=== PATIENT | male | born 1945 | race Caucasian/White ===

== ENCOUNTER 2018-02-18 20:04 | Emergency (ER) | payer MEDICARE, OTHER ==
[2018-02-18 21:30] LABS: #Eosinphils 0.1 thou/uL (0.0-0.7); #Lymphocytes 0.8 thou/uL (1.20-3.40); #Monocytes 0.6 thou/uL (0.11-0.59); #Neutrophils 12.7 thou/uL (1.40-6.50); %Basophils 0.1 % (0.0-1.0); %Eosinophils 0.7 % (0.0-10.0); %Lymphocytes 5.8 % (21.0-51.0); %Monocytes 3.9 % (0.0-10.0); %Neutrophils 89.5 % (42.0-75.0); Hemoglobin 12.8 g/dL (14.0-18.0); Mean Corpuscular HGB CONC 34.3 g/dL (32.0-36.0); Mean Corpuscular Hemoglobin 32.3 pg (27.0-31.0); Mean Corpuscular Volume 94.3 fl (80.0-94.0); Mean Platelet Volume 7.6 fL (7.4-10.4); Platelet Count 164 thou/uL (130-400); RBC Distribution Width 13.3 % (11.5-14.5); Red Blood Cell (RBC) Count 3.95 mill/uL (4.70-6.10); White Blood Cell (WBC) Count 14.2 thou/uL (4.8-10.8)
[2018-02-18 21:35] LABS: INR-International Normal Ratio 1.1; Prothrombin Time 14.6 SEC (12.0-14.7)
[2018-02-18 21:36] LABS: PTT 29.7 SEC (22.9-36.1)
[2018-02-18 21:49] LABS: ALT (SGPT) 43 U/L (8-55); AST (SGOT) 21 U/L (5-34); Albumin 3.5 g/dL (3.4-4.8); Alkaline Phosphatase 100 U/L (40-150); Anion Gap 10 mmol/L (10-20); BUN (Urea Nitrogen) 30 mg/dL (8.4-25.7); Bilirubin, Total 0.7 mg/dL (0.2-1.2); Calc. Creatinine Clearance 0 mL/min (70-130); Calcium 8.8 mg/dL (7.8-10.44); Carbon Dioxide 27 mmol/L (23-31); Chloride 103 mmol/L (98-107); Estimated GFR-MDRD Greater than 90; Globulin 2.6 g/dL (2.4-3.5); Glucose 92 mg/dL (83-110); Potassium 4.3 mmol/L (3.5-5.1); Protein, Total 6.1 g/dL (5.8-8.1); Sodium 136 mmol/L (136-145)
[2018-02-18 21:53] LABS: Bilirubin Negative (Negative); Blood, Urine Large (Negative); Clarity TURBID (Clear); Glucose, Urine (Dipstick) Negative (Negative); Leukocyte Large (Negative); Nitrite Positive (Negative); Protein, Urine (Dipstick) 100 mg/dL (Neg-Trace); Specific Gravity, Urine 1.024 (1.002-1.036)
[2018-02-18 21:54] LABS: Bacteria/HPF 3+ HPF (None Seen)
[2018-02-18 21:57] LABS: Pathc Cast-AUWi Flag 24.68 (0-2.49); Yeast-AUWi Flag 834.5 (0-25.0)
[2018-02-18 22:03] LABS: RBC/HPF GREATER THAN 50-TNTC HPF (0-3)
[2018-02-18 22:09] LABS: Crystals/HPF 3+ TRIPLE PHOS HPF (Negative); Hyaline Casts/LPF 4-6 HYALINE CAST LPF (0-3 Hyaline); Other Casts/LPF 4-6 WBC CASTS LPF (0-3 Hyaline)
[2018-02-18] MEDS ORDERED: cefTRIAXone\\ROCEPHIN 2 GM VIAL ONE (22:47)
== END 2018-02-19 00:45 | disposition home or self-care (01) ==
LOC: ERS 20:04
DX: N39.0 Urinary tract infection, site not specified (principal); R31.9 Hematuria, unspecified; Z71.6 Tobacco abuse counseling; I69.320 Aphasia following cerebral infarction; I69.351 Hemiplegia and hemiparesis following cerebral infarction affecting right dominant side; E78.5 Hyperlipidemia, unspecified; K21.9 Gastro-esophageal reflux disease without esophagitis; I10 Essential (primary) hypertension; F41.9 Anxiety disorder, unspecified; F17.210 Nicotine dependence, cigarettes, uncomplicated; G47.00 Insomnia, unspecified
CPT/HCPCS: 36415; 80053; 81003; 81015; 85025; 85610; 85730; 87086; 96365; 99406; J0696

== ENCOUNTER 2018-08-18 09:08 | Emergency (ER) | payer MEDICARE, OTHER ==
[2018-08-18 10:11] LABS: Bilirubin Negative (Negative); Blood, Urine Large (Negative); Glucose, Urine (Dipstick) Negative (Negative); Leukocyte Moderate (Negative); Nitrite Positive (Negative); Protein, Urine (Dipstick) 100 mg/dL (Neg-Trace); Urobilinogen 0.2 mg/dL (0.2-1.0)
[2018-08-18 10:14] LABS: Clarity Cloudy (Clear)
[2018-08-18 10:18] LABS: RBC/HPF GREATER THAN 50-TNTC HPF (0-3)
[2018-08-18 10:19] LABS: Bacteria/HPF Rare-Few HPF (None Seen); Hyaline Casts/LPF NONE SEEN LPF (0-3 Hyaline)
== END 2018-08-18 11:58 | disposition home or self-care (01) ==
LOC: ERS 09:08
DX: N30.91 Cystitis, unspecified with hematuria (principal); G47.00 Insomnia, unspecified; K21.9 Gastro-esophageal reflux disease without esophagitis; I10 Essential (primary) hypertension; F41.9 Anxiety disorder, unspecified; F17.210 Nicotine dependence, cigarettes, uncomplicated; Z79.899 Other long term (current) drug therapy; Z79.82 Long term (current) use of aspirin
CPT/HCPCS: 81003; 81015; 87077; 87086; 87186; 99285

== ENCOUNTER 2018-09-18 12:28 | Inpatient (IN) | payer MEDICARE, OTHER ==
[2018-09-18 13:50] LABS: Hemoglobin 12.9 g/dL (14.0-18.0); Mean Corpuscular HGB CONC 32.7 g/dL (32.0-36.0); Mean Corpuscular Hemoglobin 30.5 pg (27.0-31.0); Mean Corpuscular Volume 93.1 fL (78.0-98.0); Mean Platelet Volume 8.7 fL (7.4-10.4); Platelet Count 243 thou/uL (130-400); RBC Distribution Width 13.5 % (11.5-14.5); Red Blood Cell (RBC) Count 4.23 mill/uL (4.70-6.10); White Blood Cell (WBC) Count 22.9 thou/uL (4.8-10.8)
[2018-09-18 13:58] LABS: ALT (SGPT) 32 U/L (8-55); AST (SGOT) 25 U/L (5-34); Albumin 3.5 g/dL (3.4-4.8); Alkaline Phosphatase 115 U/L (40-150); Anion Gap 11 mmol/L (10-20); BUN (Urea Nitrogen) 40 mg/dL (8.4-25.7); Bilirubin, Total 0.5 mg/dL (0.2-1.2); Calc. Creatinine Clearance 0 mL/min (70-130); Carbon Dioxide 26 mmol/L (23-31); Chloride 105 mmol/L (98-107); Estimated GFR-MDRD 74; Globulin 3.2 g/dL (2.4-3.5); Glucose 118 mg/dL (83-110); Potassium 4.7 mmol/L (3.5-5.1); Protein, Total 6.7 g/dL (5.8-8.1); Sodium 137 mmol/L (136-145)
[2018-09-18 14:17] LABS: Band 19 % (5-11); Eosinophils 2 % (0-10); Lymphocytes 12 % (21-51); MDiff Complete? YES; Monocytes 3 % (0-10); Neutrophil 63 % (42-75); Ovalocytes SLIGHT = 2-5 cells (100X) (0-1/hpf); PLT Morphology Comment Appears Adequate; Polychromasia SLIGHT = 2-3 cells (100X) (0-2/hpf)
[2018-09-18 14:48] LABS: Clarity Cloudy (Clear)
[2018-09-18 14:49] LABS: Leukocyte Unable to Interpret (Negative); Nitrite Unable to Interpret (Negative); Specific Gravity, Urine 1.032 (1.002-1.036)
[2018-09-18 14:50] LABS: Bilirubin Unable to Interpret (Negative); Blood, Urine Large (Negative); Glucose, Urine (Dipstick) Unable to Interpret mg/dL (Negative); Protein, Urine (Dipstick) Unable to Interpret mg/dL (Neg-Trace); Urobilinogen UNABLE TO INTERPRET mg/dL (0.2-1.0)
[2018-09-18 14:51] LABS: RBC/HPF GREATER THAN 50-TNTC HPF (0-3)
[2018-09-18] MEDS ORDERED: cefTRIAXone\\ROCEPHIN 1 GM VIAL ONE (15:42)
[2018-09-18] MEDS ORDERED: Acetaminophen 325 MG TAB PO PRN (17:34)
[2018-09-18] MEDS ORDERED: Ondansetron PF 4 MG/2 ML Vial IVP PRN (17:34)
[2018-09-18] MEDS ORDERED: Ondansetron ODT 4 MG TAB SL PRN (17:34)
[2018-09-18] MEDS ORDERED: Loratadine 10 MG TAB PER TUBE PRN (17:55)
[2018-09-18] MEDS ORDERED: Pancrelipase DR 12000 1 CAP PER TUBE PRN (17:56)
[2018-09-18] MEDS ORDERED: Ondansetron ODT 4 MG TAB PO PRN (17:56)
[2018-09-18] MEDS ORDERED: Artificial Tear Sol 15 ML BOT EA EYE PRN (17:57)
[2018-09-18] MEDS ORDERED: cloNIDine 0.1 MG TAB PER TUBE PRN (17:58)
[2018-09-18] MEDS ORDERED: Calcium Carbonate 600 MG TAB PER TUBE PRN (17:58)
[2018-09-18] MEDS ORDERED: Bisacodyl 10 MG SUPP PR PRN (17:58)
[2018-09-18] MEDS ORDERED: Loperamide HCl 2 MG CAP PER TUBE PRN (17:59)
[2018-09-18] MEDS: Sodium Chloride 0.9% 1,000 ML IV SCH (20:14)
[2018-09-18 21:11] LABS: Lactic Acid 2.9 mmol/L (0.5-2.2)
[2018-09-18] MEDS: traZODone HCl 50 MG TAB PER TUBE SCH (21:55)
[2018-09-18] MEDS: Atorvastatin Calcium 20 MG TAB PER TUBE SCH (21:55)
--- NOTE | 2018-09-19 00:28 | HP ---
CHIEF COMPLAINT: Hematuria and hypotension. HISTORY OF PRESENT ILLNESS: Mr. Barton is a 73-year-old male with past medical history of status post pontine CVA, dysphagia, tube feeding, and was noted to have hematuria today. The patient tried to unclog the catheter and they removed the catheter. Again, he had gross hematuria, which usually clears up some time, but at this time, it is persistent. The patient also complaining of suprapubic pain and alf staff noticed the patient was hypotensive, looking pale, so in view of this, the patient is being transferred to [facility] via EMS. EMS found the patient hypotensive with gross hematuria. They gave 500 mL of bolus normal saline. In the ER, the patient was still hypotensive, received IV fluid bolus, normal saline 500 mL, actually he received a total of 2 L, after his blood pressure improved. The patient with some leukocytosis and patient suspected to have possible sepsis, received dose of Rocephin and vancomycin. The patient continued to have hematuria. He is being admitted for further evaluation and management. 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 CURRENT MEDICATIONS: The patient is on; 1. Tylenol p.r.n. 2. Aspirin 81 mg daily. 3. Lipitor 20 mg daily. 4. Dulcolax p.r.n. 5. Clonidine 0.1 mg q.6 p.r.n. 6. Colace 1 capsule 100 daily. 7. Omeprazole 40 mg daily. 8. Loratadine one tablet daily. 9. Pancrelipase daily. 10. Scopolamine patch q.3 days. 11. Trazodone 50 mg nightly. 12. Loperamide p.r.n. ALLERGIES: NKDA. FAMILY HISTORY: Nothing contributory. SOCIAL HISTORY: He is a resident of [facility]. No history of smoking. No history of alcohol or drug use. REVIEW OF SYSTEMS: Unable to obtain because the patient is aphasic from the stroke. PHYSICAL EXAMINATION: GENERAL: The patient is alert and awake. VITAL SIGNS: Temperature 97, pulse 104, respirations 20, and blood pressure 100/66. Initially, the patient was hypotensive with blood pressure of 90/60. HEENT: Head is normocephalic and atraumatic. Pupils equal and reactive. Nasopharynx is pale and dry. Hard and soft palate, no lesions. SKIN: Turgor decreased. NECK: Supple. No JVD. LUNGS: Breath sounds diminished bilaterally. Percussion dull bilaterally. No rales. No rhonchi. HEART: S1 and S2 regular. ABDOMEN: Soft. Tenderness present in the suprapubic area. No guarding. No rigidity. Bowel sounds present. RECTAL: Deferred. CENTRAL NERVOUS SYSTEM: No new focal neurological deficits. GENITOURINARY: Shows gross hematuria. LABORATORY DATA: CBC shows WBC 22.9, hemoglobin 12, hematocrit of 39, and platelets 243. Metabolic panel; sodium 137, potassium 4.7, chloride 105, CO2 of 23, blood urea nitrogen 40, creatinine 0.9, and glucose 118. Urinalysis unable to interpret due to hematuria. EKG showed normal sinus rhythm. No acute ST-T wave changes seen. Chest x-ray not done. ASSESSMENT: 1. Gross hematuria. 2. Leukocytosis and hypotension, possible sepsis. 3. Status post cerebrovascular accident. 4. Aphasia. 5. Tube feeding. 6. History of tobacco abuse. 7. History of hypotension. PLAN: 1. Vital signs q.4. 2. Activity: As tolerated. 3. Allergies: NKDA. 4. IV fluids, normal saline at 100 mL per hour. 5. Continue alf medications. 6. Rocephin 2 g IV piggyback daily. 7. Vancomycin 1 g IV piggyback q.12 hours. 8. CBC and basic metabolic panel in the morning. 9. Urology consult for hematuria. 10. Resume tube feedings. Job ID: [id number]
[2018-09-19] MEDS: Sodium Chloride 0.9% 1,000 ML IV SCH ×2 (03:20→16:12)
[2018-09-19 06:40] LABS: #Eosinphils 0.2 thou/uL (0.0-0.7); #Lymphocytes 1.1 thou/uL (1.20-3.40); #Monocytes 0.5 thou/uL (0.11-0.59); %Basophils 0.2 % (0.0-1.0); %Lymphocytes 12.2 % (21.0-51.0); %Monocytes 5.9 % (0.0-10.0); %Neutrophils 79.7 % (42.0-75.0); Hemoglobin 9.2 g/dL (14.0-18.0); Mean Corpuscular HGB CONC 32.8 g/dL (32.0-36.0); Mean Corpuscular Hemoglobin 31.4 pg (27.0-31.0); Mean Corpuscular Volume 95.7 fL (78.0-98.0); Mean Platelet Volume 9.2 fL (7.4-10.4); Platelet Count 158 thou/uL (130-400); RBC Distribution Width 13.9 % (11.5-14.5); Red Blood Cell (RBC) Count 2.94 mill/uL (4.70-6.10); White Blood Cell (WBC) Count 8.7 thou/uL (4.8-10.8)
[2018-09-19 06:48] LABS: Anion Gap 9 mmol/L (10-20); BUN (Urea Nitrogen) 33 mg/dL (8.4-25.7); Calc. Creatinine Clearance 75 mL/min (70-130); Carbon Dioxide 21 mmol/L (23-31); Chloride 110 mmol/L (98-107); Estimated GFR-MDRD Greater than 90; Glucose 109 mg/dL (83-110); Potassium 4.3 mmol/L (3.5-5.1); Sodium 136 mmol/L (136-145)
[2018-09-19] MEDS: Scopolamine 1.5 mg/72 hour Patch TOP SCH (08:33)
[2018-09-19] MEDS: Pantoprazole 40 MG GRANULES PACKET PER TUBE SCH (08:33)
[2018-09-19] MEDS: Docusate 100 MG CAP PER TUBE SCH (08:34)
[2018-09-19] MEDS ORDERED: cefTRIAXone\\ROCEPHIN 2 GM in Sodium Chloride 0.9% 100 ML IVPB SCH (09:00)
[2018-09-19] MEDS ORDERED: Sodium Chloride 0.9% 500 ML IV SCH (11:30)
--- NOTE | 2018-09-19 12:45 | EKG ---
Test Reason : Blood Pressure : / mmHG Vent. Rate : 098 BPM Atrial Rate : 098 BPM P-R Int : 154 ms QRS Dur : 080 ms QT Int : 344 ms P-R-T Axes : 040 -17 036 degrees QTc Int : 439 ms Normal sinus rhythm Inferior infarct , age undetermined Abnormal ECG Confirmed by OSWALDO PARNELL, DANAE Valladares ([id number]), assignment desk editor RITIKA HOLDER ([id number]) on 09/19/2018 12:45:11 PM Referred By: Confirmed By:DANAE CHACON MD
[2018-09-19] MEDS: Vancomycin HCl 1.25 GM in Sodium Chloride 0.9% 250 ML 250 ML IVPB SCH (16:11)
--- NOTE | 2018-09-19 16:48 | CT ---
CT ABDOMEN WITH AND WITHOUT IV CONTRAST CT PELVIS WITH AND WITHOUT IV CONTRAST Date: 09-19-18 History: Gross hematuria, lower abdominal pain. Comparison: 01-24-17 FINDINGS: There are linear densities at the right lung base which reticular nodular densities present. There is minimal bronchiectasis with mild peribronchial thickening. Findings may be related to infectious or inflammatory process at the right lung base. The area of consolidation in the right lung base on 01-25 has resolved. Previously seen pneumobilia is again present. Gallbladder is not definitely visualized but may be con trast or subsequently absent. Again noted are hypodense bilateral lesions, the largest hypodense lesion present in the midportion l eft kidney again demonstrating coefficient most consistent with a cyst. Small hypodense lesions in th e right kidney are also likely related to cysts. Ale is mild bilateral hydronephrosis and hydrourete r. No renal or ureteral calculi are seen bilaterally. Urinary bladder is distended with Molina catheter in place. There is increased density present within the dependent portion of the urinary bladder which may represent hemorrhage although urinary bladder mass cannot be entirely excluded. This area of irregular increased density measures 6.6 cm transverse x 2.9 cm AP. In addition, there is a greater area of increased density in the right posterolateral a spect of the urinary bladder measuring 2.8 cm x 0.9 cm likely related to layering urinary bladder madelyn culi. Molina catheter is present in the urinary bladder, but the balloon of the catheter appears to be in the region of the most distal aspect of the prostatic urethra. There is mild increased density wi thin the prostate gland immediately surrounding the balloon on the Molina catheter. Gas is present in the urinary bladder which may be related to recent catheterization. The spleen, pancreas, and bilateral adrenal glands demonstrate a normal CT appearance. A gastrostomy tube is again noted in place. Vascular calcifications are seen in a tortuous abdominal aorta. There has been no other interval change when compared to the prior exam. IMPRESSION: 1. Increased mass-like density within the dependent portion of the urinary bladder which may actually represent hemorrhage within the urinary bladder. Urinary bladder mass cannot be entirely excluded, a lthough this is thought less likely. Follow up evaluation is recommended to ensure resolution of the area of mass-like increased density. Depending on clinical concern, direct visualization may be helpf ul. 2. Molina catheter is noted in place but the balloon of the Molina catheter appears to be within the mo st distal aspect of the prostatic urethra. There is mild surrounding increased density within the pro state gland which could be related to either hyperemia or a small amount of surrounding hemorrhage. 3. Calculi layering independently within the urinary bladder measuring 2.8 cm x 0.9 cm. 4. Mild bilateral hydronephrosis. No ureteral or renal calculus is present. 5. Bilateral renal cysts. 6. Findings which may represent mild infectious or inflammatory process right lung base. There is pe ribronchial thickening which would also suggest infectious or inflammatory process as well. Previousl y noted consolidation right lung base on study in 2017 has resolved. 7. Persistent pneumobilia. 8. Gastrostomy tube in place. Above findings discussed with Dr. Larios on 09-19-18 at 1353 hours. POS: [facility]
--- NOTE | 2018-09-19 17:40 | CON ---
DATE OF CONSULTATION: NEUROLOGY CONSULTATION HISTORY OF PRESENT ILLNESS: This is a 73-year-old white male I was asked to see this morning, September 19, 2018, who was admitted yesterday late afternoon. I was asked to see him because of blood in his urine. The patient had I believe an intracranial bleed and a CVA and he is dysphagic because of that, and he has a feeding tube because of this. He has been in a nursing center up in [place], and I looked through his records. He said this is now the 3rd time he has been seen in the ER here with hematuria. He came in yesterday. The catheter was not draining well. It appears that it was removed and replaced in the ER and a 3-way catheter was placed. I talked with one of the nurses aides and said that they had to irrigate out clots yesterday evening, but that since then his catheter has been draining okay. On looking at him on a continuous bladder irrigation which I slowed down, his urine has just a faint pink color and no clots. Looking back to his records again he has had blood in his urine in January and August of this year. He was in the ER and was placed on antibiotics. No urologist was ever consulted or it does not appear that any were consulted, and I cannot find that any were called yesterday, when he was in the ER with hematuria. He was also hypotensive in the emergency room and received IV boluses of fluid and his blood pressure has improved. He has had cultures of the urine done and looks like he is going to have some organisms growing, but again the patient has had indwelling catheter, so you kind of would expect that his bladder would be colonized. His white count was elevated when he came in. It is normal today. His hemoglobin has dropped quite a bit, and I think some of this is probably just related to hydration. He is most likely hemoconcentrated yesterday. On talking with him, he responds by shaking his head yes or no and using his fingers to indicate numbers. He has had this catheter in for about a year. He is not sure why. He apparently was urinating not into a diaper, but into a handheld urinal prior to that. To his knowledge, he had not been having bladder infection, although he has been treated for it twice through the emergency center when he had blood in his urine. He has not had kidney stones. He has not ever been told he has bladder cancer or prostate cancer or been treated for those. PAST MEDICAL HISTORY: His medical history include the history of stroke, history of normal pressure hydrocephalus, history of hypertension, history of tobacco use, history of hyperlipidemia, and he has had these 2 urinary tract infections. MEDICATIONS: His routine medicines have been Tylenol, aspirin, Lipitor, clonidine, omeprazole, loratadine, trazodone, loperamide. ALLERGIES: NONE. PHYSICAL EXAMINATION: ABDOMEN: His flank is nontender. His abdomen is flat. Bladder is not distended. There is no abdominal tenderness, rebound, or guarding. He is circumcised. Catheter is indwelling. He is draining a relatively clear looking urine currently. There is no evidence of urethral erosion. The testicles are without mass or tenderness. RECTAL: I did not do a rectal exam on this visit today. Looking through his records, his creatinine is normal. As mentioned, he is anemic. My suspicion would be that this is chronic. The urine culture is growing out what appears to probably be a Staph aureus species and a nonhemolytic strep. Looking back in August, he had an MRSA in the urine and a group B strep. In January, a urine culture was negative, and at that point, he also had gross hematuria. I cannot find that he has had any CAT scans done here with the hematuria, so I think he probably at least deserves that with history of tobacco use in the past. We will check his urine culture as it returns, could consider seeing whether he really needs a catheter in or not during this admission. Perhaps he can urinate on his own. It is unclear why he has one, may end up needing a cystoscopic exam, but we would need to wait on that too. We know what his urine culture status is and that probably could be done at a later date potentially as an outpatient. Job ID: [id number]
[2018-09-19] MEDS: Atorvastatin Calcium 20 MG TAB PER TUBE SCH (21:46)
[2018-09-19] MEDS: traZODone HCl 50 MG TAB PER TUBE SCH (21:46)
[2018-09-20] MEDS: Sodium Chloride 0.9% 1,000 ML IV SCH ×3 (04:09→20:31)
[2018-09-20 05:47] LABS: #Eosinphils 0.3 thou/uL (0.0-0.7); #Lymphocytes 1.2 thou/uL (1.20-3.40); #Monocytes 0.5 thou/uL (0.11-0.59); #Neutrophils 4.5 thou/uL (1.40-6.50); %Basophils 0.5 % (0.0-1.0); %Eosinophils 4.1 % (0.0-10.0); %Lymphocytes 18.1 % (21.0-51.0); %Monocytes 7.2 % (0.0-10.0); Hemoglobin 8.3 g/dL (14.0-18.0); Mean Corpuscular HGB CONC 33.3 g/dL (32.0-36.0); Mean Corpuscular Hemoglobin 31.4 pg (27.0-31.0); Mean Corpuscular Volume 94.5 fL (78.0-98.0); Mean Platelet Volume 7.7 fL (7.4-10.4); Platelet Count 130 thou/uL (130-400); RBC Distribution Width 13.6 % (11.5-14.5); Red Blood Cell (RBC) Count 2.63 mill/uL (4.70-6.10); White Blood Cell (WBC) Count 6.5 thou/uL (4.8-10.8)
[2018-09-20] MEDS: Pantoprazole 40 MG GRANULES PACKET PER TUBE SCH (08:04)
[2018-09-20] MEDS: Docusate 100 MG CAP PER TUBE SCH (08:04)
--- NOTE | 2018-09-20 12:14 | PQF ---
LETTY TEJADA VENKAT R MD [id number] [facility]-268 [id number] CLINICAL DOCUMENTATION IMPROVEMENT CLARIFICATION FORM: ICD-10 Updated PLEASE DO AN ADDENDUM TO THE PROGRESS NOTE WITH ANY DOCUMENTATION UPDATES OR ADDITIONS AND CARRY THROUGH TO DC SUMMARY. THANK YOU. DATE: 09/20 ATTN: DR. AL Please exercise your independent, professional judgment in responding to the clarification form. Clinical indicators are provided on the bottom of this form for your review. Please check appropriate box(s): BMI <19.0 with associated diagnosis of: (check one) [ y ] Underweight [ ] Cachexia [ ] Other diagnosis [ ] Unable to determine For continuity of documentation, please document condition throughout progress notes and discharge summary. Thank You. BMI < 19 Under weight 19 - 24.9 Healthy 25.0 - 29.9 Slightly Overweight 30.0 - 34.9 Obese 35.0 - 39.9 Severely Obese 40.0 and Over Morbidly Obese CLINICAL INDICATORS - SIGNS / SYMPTOMS / LABS BMI: 17.7 NUTRITION ASSESSMENT 09/19: PHYSICAL FINDINGS: MUSCLE WASTING TO TEMPLES & CLAVICLES; STAGE II PU R BUTTOCK NUTRITION DIAGNOSIS: UNDERWEIGHT EVIDENCED BY BMI 17.6 RISKS: DYSPHAGIA W/PEG TUBE STAGE II PU R BUTTOCK TREATMENT: NUTRITION ASSESSMENT (09/19) THANK YOU! Carley (This form is maintained as a part of the permanent medical record) 2014 [employer]. All Rights Reserved Carley Sanders RN, BSN [email or web address] Office: [phone] [facility]
--- NOTE | 2018-09-20 12:18 | PQF ---
LETTY TEJADA VENKAT R MD [id number] O-[id number] CLINICAL DOCUMENTATION IMPROVEMENT CLARIFICATION FORM: ICD-10 Updated PLEASE DO AN ADDENDUM TO THE PROGRESS NOTE WITH ANY DOCUMENTATION UPDATES OR ADDITIONS AND CARRY THROUGH TO DC SUMMARY. THANK YOU. DATE: 09/20 ATTN: DR. Elinor AL Please exercise your independent, professional judgment in responding to the clarification form. Clinical indicators are provided on the bottom of this form for your review. Please check appropriate box(s): __y I (concur) with the NURSING ADMISSION SKIN ASSESSMENT findings as stated below. [ ] Pressure Ulcer: (Stage I: Erythema; Stage II: Partial thickness; Stage III : Full thickness; Stage IV: Necrosis to muscle/bone) [ ] Location: POA: [ ] Yes [ ] No[ ] Unable to determine Stage (I to IV): (Left Right Bilateral N/A ) [ ] No pressure ulcer diagnosis [ ] Other diagnosis [ ] Unable to determine In addition, please specify: Present on Admission (POA): [ y ] Yes [ ] No [ ] Unable to determine For continuity of documentation, please document condition throughout progress notes and discharge summary. Thank You. CLINICAL INDICATORS - SIGNS / SYMPTOMS / LABS NURSING ADMISSION SKIN ASSESSMENT 09/18: STAGE II PRESSURE ULCER TO RIGHT BUTTOCK RISK FACTORS: R HEMIPLEGIA LOW BMI OF 17.7 TREATMENTS: WAFFLE MATTRESS TURN Q2 HRS THANK YOU! Carley (This form is maintained as a part of the permanent medical record) 2014 [employer]. All Rights Reserved Carley Sanders RN, BSN [email or web address] Office: [phone] [facility]
--- NOTE | 2018-09-20 12:32 | PQF ---
LETTY TEJADA VENKAT R MD [id number] [facility]-268 [id number] CLINICAL DOCUMENTATION IMPROVEMENT CLARIFICATION FORM: ICD-10 Updated PLEASE DO AN ADDENDUM TO THE PROGRESS NOTE WITH ANY DOCUMENTATION UPDATES OR ADDITIONS AND CARRY THROUGH TO DC SUMMARY. THANK YOU. DATE: 09/20 ATTN: DR. Elinor AL Please exercise your independent, professional judgment in responding to the clarification form. Clinical indicators are provided on the bottom of this form for your review. Please check appropriate box(es): [ y] Sepsis D/T UTI D/T Kurtz Catheter [ ] Sepsis D/T UTI not D/T Kurtz Catheter [ ] Other diagnosis [ ] Unable to determine For continuity of documentation, please document condition throughout progress notes and discharge summary. Thank You. CLINICAL INDICATORS - SIGNS / SYMPTOMS / LABS ER PRESENTATION 09/18: BP: 92/68 - 108/78 HR: 104 WBC: 22.9 KURTZ CATHETER POA W/GROSS HEMATURIA ER PHYSICIAN DOCUMENTATION 09/18: SEPSIS PHYSICIAN H&P 09/18: ASSESSMENT: 2) LEUKOCYTOSIS & HYPOTENSION, POSSIBLE SEPSIS; 3) ACUTE KIDNEY INJURY PN 09/19: ASSESSMENT: 4) LEUKOCYTOSIS & HYPOTENSION; 5) UROSEPSIS URINE CULTURE: MRSA, NON-HEMOLYTIC STREPTOCOCCUS RISK FACTORS: KURTZ CATHETER POA TO ER LEUKOCYTOSIS HX RECURRENT UTI'S TREATMENTS: UROLOGY CONSULT IV ANTIBIOTIC (VANCOMYCIN 09/18 - PRESENT; ROCEPHIN 09/18 IN ER) IVF (NS 2L IN ER) THANK YOU! Carley (This form is maintained as a part of the permanent medical record) 2014 [employer]. All Rights Reserved Carley Sanders RN, BSN [email or web address] Office: [phone] [facility]
[2018-09-20 16:51] LABS: Vancomycin, Trough 8.2 ug/mL
[2018-09-20] MEDS: Vancomycin HCl 1.25 GM in Sodium Chloride 0.9% 250 ML 250 ML IVPB SCH (18:23)
[2018-09-20] MEDS: Atorvastatin Calcium 20 MG TAB PER TUBE SCH (20:31)
[2018-09-20] MEDS: diphenhydrAMINE 25 MG CAP PER TUBE PRN (20:32)
[2018-09-20] MEDS: traZODone HCl 50 MG TAB PER TUBE SCH (20:32)
[2018-09-21] MEDS: Vancomycin HCl 1 GM in Premix Bag 1 BAG IVPB SCH ×2 (05:47→19:10)
[2018-09-21] MEDS: Sodium Chloride 0.9% 1,000 ML IV SCH ×2 (05:48→19:10)
[2018-09-21 05:49] LABS: Anion Gap 9 mmol/L (10-20); BUN (Urea Nitrogen) 19 mg/dL (8.4-25.7); Calc. Creatinine Clearance 80 mL/min (70-130); Carbon Dioxide 24 mmol/L (23-31); Chloride 111 mmol/L (98-107); Estimated GFR-MDRD Greater than 90; Glucose 101 mg/dL (83-110); Potassium 4.5 mmol/L (3.5-5.1); Sodium 139 mmol/L (136-145)
[2018-09-21 06:21] LABS: #Eosinphils 0.2 thou/uL (0.0-0.7); #Lymphocytes 1.1 thou/uL (1.20-3.40); #Monocytes 0.3 thou/uL (0.11-0.59); #Neutrophils 3.5 thou/uL (1.40-6.50); %Basophils 0.6 % (0.0-1.0); %Eosinophils 3.9 % (0.0-10.0); %Monocytes 5.3 % (0.0-10.0); %Neutrophils 69.2 % (42.0-75.0); Hemoglobin 8.4 g/dL (14.0-18.0); Mean Corpuscular HGB CONC 33.7 g/dL (32.0-36.0); Mean Corpuscular Hemoglobin 31.5 pg (27.0-31.0); Mean Corpuscular Volume 93.6 fL (78.0-98.0); Mean Platelet Volume 8.1 fL (7.4-10.4); Platelet Count 149 thou/uL (130-400); RBC Distribution Width 13.7 % (11.5-14.5); Red Blood Cell (RBC) Count 2.67 mill/uL (4.70-6.10)
[2018-09-21] MEDS: Pantoprazole 40 MG GRANULES PACKET PER TUBE SCH (10:00)
[2018-09-21] MEDS: Docusate 100 MG CAP PER TUBE SCH (10:01)
[2018-09-21] MEDS: Acetaminophen 500 MG TAB PER TUBE PRN (11:52)
--- NOTE | 2018-09-21 17:34 | PRG ---
DATE OF SERVICE: 09/21/2018 SUBJECTIVE: The patient had been seen in the last 3 days of gross hematuria, has a bladder stone and possibly bladder tumor on his CAT scan. His upper tracts looked normal. His vital signs are currently stable. He had a MRSA growing in his urine and he is on vancomycin for that. He also had some lower colony counts of an Enterococcus that were also covered by the vancomycin. We irrigated his bladder out 2 days ago. His urine was very clear yesterday and slow CBI today. We stopped the CBI and his urine got a little blood here at lunchtime when I saw him, so we restarted it. Once again, it is crystal clear on a slow CBI. His hemoglobin today was stable compared to yesterday, although, he is anemic. I have talked with his sister and we have set him up for cysto bladder stone lithotripsy and possible TURBT for the 26 September, the day after , which is the soonest not be able to do it. If his urine clears and the CBI stopped and remains clear, he could probably be discharged back to the snf and come back in as an outpatient for this procedure. If, however, his urine is staying bloody intermittently, then it may be just to keep him in over this time. In any event, if he does go home, he will need to be n.p.o. after midnight on for the procedure, at this point set up for the afternoon of September 26. Dr. Dl Christianson is covering for me over the next few days and will check in on the patient. Job ID: [id number]
[2018-09-21] MEDS: diphenhydrAMINE 25 MG CAP PER TUBE PRN (20:16)
[2018-09-21] MEDS: traZODone HCl 50 MG TAB PER TUBE SCH (20:16)
[2018-09-21] MEDS: Atorvastatin Calcium 20 MG TAB PER TUBE SCH (20:16)
[2018-09-22] MEDS: Vancomycin HCl 1 GM in Premix Bag 1 BAG IVPB SCH ×2 (05:24→17:25)
[2018-09-22 05:33] LABS: Vancomycin, Trough 20.8 ug/mL
[2018-09-22] MEDS: Scopolamine 1.5 mg/72 hour Patch TOP SCH (07:42)
[2018-09-22] MEDS: Docusate 100 MG CAP PER TUBE SCH (07:43)
[2018-09-22] MEDS: Pantoprazole 40 MG GRANULES PACKET PER TUBE SCH (07:43)
[2018-09-22] MEDS: Sodium Chloride 0.9% 1,000 ML IV SCH (10:21)
[2018-09-22] MEDS: Atorvastatin Calcium 20 MG TAB PER TUBE SCH (21:05)
[2018-09-22] MEDS: traZODone HCl 50 MG TAB PER TUBE SCH (21:05)
[2018-09-22] MEDS: Diabetic Tussin 200 MG/10 ML UDCUP PER TUBE PRN (21:06)
[2018-09-23] MEDS: Acetaminophen 500 MG TAB PER TUBE PRN (00:49)
--- NOTE | 2018-09-23 01:05 | CON ---
DATE OF CONSULTATION: 09/22/2018 CONSULTATION AND PROGRESS NOTE REASON FOR CONSULTATION: 1. Gross hematuria, currently on CBI (continuos bladder irrigation). 2. Urinary tract infection secondary to methicillin-resistant Staphylococcus aureus and Enterococcus faecalis. HISTORY OF PRESENT ILLNESS: Mr. Liam Barton is a 73-year-old white male with dysphagia and is a patient of Dr. Lawson Goyal, who placed a CBI catheter in the patient on 09/19/2018 due to gross hematuria. The patient evidently has gross hematuria secondary to current urinary tract infection and has been on continuos bladder irrigation in addition. Today, his CBI has been titrated down over the last 24 hours to a minimal rate. The patient has minimal hematuria at the present time. He is on antibiotic coverage for his mixed urinary tract infection due to methicillin-resistant Staphylococcus aureus and Enterococcus faecalis. PHYSICAL EXAMINATION: VITAL SIGNS: Temperature is 98.8. He is afebrile. Pulse 84, respirations 16, room air O2 saturation is 96% with current blood pressure of 103/66. HEAD, EARS, NOSE, AND THROAT: The patient responds by head shaking. Sclerae anicteric. Oropharynx is clear. NECK: Supple. LUNGS: Clear bilaterally. CARDIAC: Regular rate and rhythm. Review of the patient's monitor car operator suggests he has a normal sinus rhythm. ABDOMEN: The patient's abdomen is notable for a G-tube. He is on current tube feedings. He has no suprapubic fullness on examination. GENITOURINARY: Indwelling Molina catheter remains in place. He is on minimal rate continuous bladder irrigation. MUSCULOSKELETAL: Negative. NEUROLOGIC: Negative. LABORATORY STUDIES: The patient's white count has decreased from 22,900 on 09/18/2018 to 5.0. Left shift has improved with the percent neutrophils decreasing from 19 bands with 63% neutrophils to 69.2% neutrophils indicating appropriate response to antibiotic therapy. ANC has reduced to a level of 3500, which is well within the normal range. Serum chemistries show the patient's chloride gradually increasing. Carbon dioxide currently at 24, sodium 139, and potassium 4.5. Estimated glomerular filtration rate is now greater than 90. Lactic acid testing has not been performed again since 09/18/2018 and it was elevated at 2.9. ASSESSMENT: 1. Apparent urosepsis secondary to methicillin-resistant Staphylococcus aureus as well as Enterococcus faecalis. The patient will remain on appropriate antibiotic coverage. 2. Possible urinary retention. Indwelling catheter remains in place. The patient is on continuous bladder irrigation for the gross hematuria and this has been titrated downwards. I expect that his hematuria is due solely to his urinary tract infection; however, this patient would be appropriate for an outpatient gross hematuria evaluation as directed by Dr. Goyal. At the present time, there are no acute genitourinary interventions required, and the patient will continue to be followed as appropriate. Over 35 minutes of consultation time was spent in evaluation and assessment of this patient today. Job ID: [id number]
[2018-09-23] MEDS: diphenhydrAMINE 25 MG CAP PER TUBE PRN (02:47)
[2018-09-23] MEDS: Vancomycin HCl 1 GM in Premix Bag 1 BAG IVPB SCH ×2 (05:12→16:35)
[2018-09-23 05:23] LABS: #Eosinphils 0.3 thou/uL (0.0-0.7); #Lymphocytes 1.3 thou/uL (1.20-3.40); #Monocytes 0.4 thou/uL (0.11-0.59); #Neutrophils 3.2 thou/uL (1.40-6.50); %Basophils 0.5 % (0.0-1.0); %Lymphocytes 24.8 % (21.0-51.0); %Monocytes 6.7 % (0.0-10.0); Hemoglobin 8.8 g/dL (14.0-18.0); Mean Corpuscular HGB CONC 33.8 g/dL (32.0-36.0); Mean Corpuscular Hemoglobin 31.5 pg (27.0-31.0); Mean Corpuscular Volume 93.2 fL (78.0-98.0); Mean Platelet Volume 7.2 fL (7.4-10.4); Platelet Count 163 thou/uL (130-400); RBC Distribution Width 14.1 % (11.5-14.5); White Blood Cell (WBC) Count 5.2 thou/uL (4.8-10.8)
[2018-09-23 05:46] LABS: Anion Gap 10 mmol/L (10-20); BUN (Urea Nitrogen) 17 mg/dL (8.4-25.7); Calc. Creatinine Clearance 77 mL/min (70-130); Calcium 8.4 mg/dL (7.8-10.44); Carbon Dioxide 25 mmol/L (23-31); Chloride 108 mmol/L (98-107); Estimated GFR-MDRD Greater than 90; Glucose 85 mg/dL (83-110); Potassium 4.1 mmol/L (3.5-5.1); Sodium 139 mmol/L (136-145)
[2018-09-23] MEDS: Docusate 100 MG CAP PER TUBE SCH (10:54)
[2018-09-23] MEDS: Pantoprazole 40 MG GRANULES PACKET PER TUBE SCH (10:54)
[2018-09-23 16:55] LABS: Vancomycin, Trough 23.2 ug/mL
--- NOTE | 2018-09-23 19:16 | PRG ---
DATE OF SERVICE: 09/23/2018 INITIAL REASON FOR CONSULTATION: 1. Gross hematuria requiring continuous bladder irrigation. 2. Urinary tract infection secondary to methicillin-resistant Staphylococcus aureus and Enterococcus faecalis, mixed infection. 3. Bladder stones and possible bladder lesion, new. 4. Bilateral hydronephrosis. 5. Bilateral renal cysts. BRIEF HISTORY: Mr. Liam Barton is a very pleasant 73-year-old mute with a recent history of gross hematuria. The patient has a bladder calculi and in addition possible bladder lesions. The patient is followed by Dr. Lawson Goyal, who has scheduled for surgery the day after [place], will undergo cystoscopic evaluation of his bladder and possible bladder stone removal. The patient has unfortunately mixed urinary tract infection with enterococcus and methicillin-resistant Staphylococcus aureus and is on isolation due to that. He was on continuous bladder irrigation for several days with a CBI catheter placed by Dr. Goyal and his gross hematuria is resolved on antibiotic therapy for his infectious agents. His Molina catheter remains in place and today is draining relatively straw-colored urine. INTERVAL EVENTS: None of significance other than change of floor for the patient; he remains on isolation. PHYSICAL EXAMINATION: VITAL SIGNS: The patient is afebrile with current temperature of 97.6, pulse 83, respirations 18, O2 saturation on room air is 94%, and blood pressure is 95/53. GENERAL: This is an awake, alert, and communicative with signing white male, in no apparent distress. He is evaluated supine in his hospital bed. HEAD, EYES, EARS, NOSE, AND THROAT: Extraocular movements are intact. Sclerae anicteric. Oropharynx is clear. NECK: Supple. LUNGS: Clear to auscultation bilaterally. CARDIAC: Regular rate and rhythm without murmur, rub, or gallop. ABDOMEN: Soft and nontender. GENITOURINARY: An indwelling 3-way Molina catheter is in place. The urine from this is relatively clear. The continuous bladder irrigation is temporarily turned off. LABORATORY STUDIES: The patient's urine culture from 09/18/2018 grew both methicillin-resistant Staphylococcus aureus and Enterococcus faecalis. CBC today shows the patient's white count is 5.2, well within the normal range; hemoglobin is 18.8 with hematocrit of 26.1. The patient has no evidence of left shift with only 62% neutrophils at present. Serum chemistries show everything except for chloride at 108, to be within normal range. His current blood urea nitrogen is 17, down from 40 on admission and the creatinine has improved to 0.76. His estimated glomerular filtration rate with catheter in place is greater than 90. ASSESSMENT AND PLAN: 1. Gross hematuria, currently managed by hematuria catheter. The irrigation is currently turned off. This indicates the patient is making improvement on current antibiotic therapy. 2. Bladder calculi. The patient is to undergo cystoscopic evaluation by Dr. Lawson Goyal on about 09/26/2018. 3. Concern for bladder cancer lesions. The patient will undergo cystoscopic evaluation and may require TURBT on that date as well. 4. Renal cysts. These do not appear to be malignant at the present time. Job ID: [id number]
[2018-09-23] MEDS: Atorvastatin Calcium 20 MG TAB PER TUBE SCH (20:54)
[2018-09-23] MEDS: traZODone HCl 50 MG TAB PER TUBE SCH (20:54)
[2018-09-24] MEDS ORDERED: Vancomycin HCl 1.75 GM in Sodium Chloride 0.9% 500 ML IVPB SCH (05:00)
[2018-09-24] MEDS: Pantoprazole 40 MG GRANULES PACKET PER TUBE SCH (08:43)
[2018-09-24] MEDS: Docusate 100 MG CAP PER TUBE SCH (08:43)
--- NOTE | 2018-09-24 15:06 | PRG ---
DATE OF SERVICE: 09/24/2018 CHIEF COMPLAINT: No new complaints. (Patient is mute). OBJECTIVE: VITAL SIGNS: Temperature 97.1, blood pressure 102/65, pulse 79, respiratory rate 16. ABDOMEN: Soft and nontender. No palpable masses. : Molina catheter in place draining clear yellow urine. He is not on CBI. IMPRESSION: Mr. Barton presented with gross hematuria. He has bladder stones and required continuous bladder irrigation. His urine is now clear without any continuous bladder irrigation necessary. He also was diagnosed with methicillin-resistant Staphylococcus aureus. Urinary tract infection is responded well with antibiotic therapy. Plan at this time is for cystoscopic evaluation of the bladder. This is scheduled by Dr. Goyal, for 09/26/2018. An order has been placed to make him n.p.o. for 09/25/2018 after midnight. PLAN: 1. Endoscopic evaluation by Dr. Goyal on 09/26/2018. 2. Continue antibiotic therapy. 3. N.p.o. after midnight, 09/25/2018. Job ID: [id number]
[2018-09-24] MEDS: Atorvastatin Calcium 20 MG TAB PER TUBE SCH (21:42)
[2018-09-24] MEDS: traZODone HCl 50 MG TAB PER TUBE SCH (21:42)
[2018-09-25] MEDS: Scopolamine 1.5 mg/72 hour Patch TOP SCH (08:45)
[2018-09-25] MEDS: Pantoprazole 40 MG GRANULES PACKET PER TUBE SCH (08:46)
[2018-09-25] MEDS: Docusate Sodium 100 MG/10 ML UDCUP PO SCH (08:46)
[2018-09-25 16:39] LABS: Vancomycin, Trough 19.6 ug/mL
[2018-09-25] MEDS ORDERED: Vancomycin HCl 750 MG in Sodium Chloride 0.9% 250 ML 250 ML IVPB SCH (17:00)
[2018-09-25] MEDS: Vancomycin HCl 750 MG in Sodium Chloride 0.9% 250 ML 250 ML IVPB SCH (18:12)
[2018-09-25] MEDS: traZODone HCl 50 MG TAB PER TUBE SCH (22:27)
[2018-09-25] MEDS: Atorvastatin Calcium 20 MG TAB PER TUBE SCH (22:27)
[2018-09-26] MEDS: Diabetic Tussin 200 MG/10 ML UDCUP PER TUBE PRN (01:15)
[2018-09-26 04:50] VITALS: BMI 19.9
[2018-09-26] MEDS: Vancomycin HCl 750 MG in Sodium Chloride 0.9% 250 ML 250 ML IVPB SCH ×2 (06:51→18:53)
[2018-09-26] MEDS: Pantoprazole 40 MG GRANULES PACKET PER TUBE SCH (07:35)
[2018-09-26] MEDS: Docusate Sodium 100 MG/10 ML UDCUP PO SCH (07:35)
[2018-09-26 09:59] LABS: #Eosinphils 0.3 thou/uL (0.0-0.7); #Lymphocytes 1.2 thou/uL (1.20-3.40); #Monocytes 0.4 thou/uL (0.11-0.59); #Neutrophils 5.5 thou/uL (1.40-6.50); %Basophils 0.3 % (0.0-1.0); %Lymphocytes 16.5 % (21.0-51.0); %Monocytes 5.2 % (0.0-10.0); Mean Corpuscular HGB CONC 33.2 g/dL (32.0-36.0); Mean Corpuscular Hemoglobin 31.3 pg (27.0-31.0); Mean Corpuscular Volume 94.4 fL (78.0-98.0); Mean Platelet Volume 7.8 fL (7.4-10.4); Platelet Count 230 thou/uL (130-400); RBC Distribution Width 13.9 % (11.5-14.5); Red Blood Cell (RBC) Count 3.18 mill/uL (4.70-6.10); White Blood Cell (WBC) Count 7.4 thou/uL (4.8-10.8)
[2018-09-26 10:11] LABS: Anion Gap 13 mmol/L (10-20); BUN (Urea Nitrogen) 24 mg/dL (8.4-25.7); Calc. Creatinine Clearance 87 mL/min (70-130); Calcium 8.6 mg/dL (7.8-10.44); Carbon Dioxide 23 mmol/L (23-31); Chloride 108 mmol/L (98-107); Estimated GFR-MDRD Greater than 90; Glucose 89 mg/dL (83-110); Potassium 4.5 mmol/L (3.5-5.1); Sodium 139 mmol/L (136-145)
[2018-09-26] MEDS ORDERED: Fentanyl 100 MCG/2 ML VIAL ONE (15:42)
[2018-09-26] MEDS ORDERED: Ondansetron HCl/PF 4 MG/2 ML Vial IVP PRN (16:54)
[2018-09-26] MEDS: traZODone HCl 50 MG TAB PER TUBE SCH (21:40)
[2018-09-26] MEDS: Atorvastatin Calcium 20 MG TAB PER TUBE SCH (21:40)
--- NOTE | 2018-09-26 23:52 | OP ---
DATE OF PROCEDURE: 09/26/2018 PREOPERATIVE DIAGNOSES: Bladder stones, urinary tract infection, gross hematuria, and bladder lesion. POSTOPERATIVE DIAGNOSES: Bladder stones, urinary tract infection, gross hematuria, and bladder lesion. PROCEDURE PERFORMED: Cysto laser lithotripsy and Ellik evacuation of bladder stones and transurethral resection of bladder tumor. ANESTHETIC: General. ESTIMATED BLOOD LOSS: Minimal. DRAINS: A 20-Uzbek Molina 3-way with a catheter plug in the irrigation channel and a 30 mL in balloon. SPECIMENS SENT: Bladder stones and bladder tumor. FINDINGS: There was no evidence of stricture disease. There was a small prostate, did not appear to be obstructing. He had a 4 x 5 cm area of raised red mucosa on the posterior wall which my guess is probably inflammatory. We did not resect all of this. We resected a few bites of this just to get pathology and then cauterize this region. He had numerous bladder stones, too numerous to count, some of them removal with the open evacuation, some of then requiring laser fulguration. OPERATIVE TECHNIQUE: Obtained written and verbal consent from the patient's sister. He was taken to the operating suite. He was placed in supine position on the treatment table. PlexiPulses were placed on his lower extremities and turned on. He was given a general anesthetic and oral intubation. He was then placed in the dorsal lithotomy position and sterilely prepped and draped. Cystoscopy was performed with a 22-Uzbek sheath. This was well lubricated and passed under direct vision through the male urethra into the urinary bladder with aid of a 30-degree lens of video camera and monitor. The bladder was filled and emptied number of times as it was examined with both the 30- and 70-degree lens. We then brought in a small caliber holmium laser fiber, broke up some of the larger of the stones, none were that large, but some were probably too large to Ellik. We then Ellik'd out multiple times until we were getting no further stone fragments remaining. At this point, we went in with a 30-degree lens and a 24-Uzbek resectoscope sheath with a visual obturator and then replaced this with an Madrigal resectoscope with a gyrus cutting loop and a bladder tumor loop and a 30-degree lens and video camera and monitor and resected some of this tumor and growth on the back of the posterior wall to the right side of the midline, removing the specimens and sending them off to pathology and cauterizing the sites of the resection. Once this was completed, there was good hemostasis. Molina catheter sterilely inserted. It was hand irrigated, it was clear, it sucked up to a drainage bag. The catheter irrigation port was plugged. He was taken out of the dorsal lithotomy position, awakened and extubated, taken by stretcher to recovery room. Job ID: [id number]
[2018-09-27 07:29] LABS: Vancomycin, Trough 19.3 ug/mL
[2018-09-27] MEDS: Docusate Sodium 100 MG/10 ML UDCUP PO SCH (08:35)
[2018-09-27] MEDS: Vancomycin HCl 750 MG in Sodium Chloride 0.9% 250 ML 250 ML IVPB SCH (08:35)
[2018-09-27] MEDS: Pantoprazole 40 MG GRANULES PACKET PER TUBE SCH (08:35)
[2018-09-27 11:40] VITALS: BP 102/61; TEMP 97.3
== END 2018-09-27 16:15 | DRG 668 ==
LOC: ERS 12:28 → ERHOLD 15:00 → 2NO 17:05 → SURG B 09-23 12:09
PROVIDERS: ADMIT Internal Medicine; ATTEND Internal Medicine
PROC: 3E0G76Z Introduction of Nutritional Substance into Upper GI, Via Natural or Artificial Opening (ICD-10-PCS; 2018-09-18)
PROC: 0TBB8ZX Excision of Bladder, Via Natural or Artificial Opening Endoscopic, Diagnostic (ICD-10-PCS; principal; 2018-09-26)
PROC: 0TCB8ZZ Extirpation of Matter from Bladder, Via Natural or Artificial Opening Endoscopic (ICD-10-PCS; 2018-09-26)
DX: T83.511A Infection and inflammatory reaction due to indwelling urethral catheter, initial encounter (principal); A41.02 Sepsis due to Methicillin resistant Staphylococcus aureus; I69.351 Hemiplegia and hemiparesis following cerebral infarction affecting right dominant side; G91.2 (Idiopathic) normal pressure hydrocephalus; Z68.1 Body mass index [BMI] 19.9 or less, adult; N39.0 Urinary tract infection, site not specified; I69.391 Dysphagia following cerebral infarction; R13.10 Dysphagia, unspecified; I69.320 Aphasia following cerebral infarction; I10 Essential (primary) hypertension; E78.5 Hyperlipidemia, unspecified; R31.0 Gross hematuria; N21.0 Calculus in bladder; N32.9 Bladder disorder, unspecified; R63.6 Underweight; L89.312 Pressure ulcer of right buttock, stage 2; N28.1 Cyst of kidney, acquired; Z79.82 Long term (current) use of aspirin; Z87.440 Personal history of urinary (tract) infections; Z87.891 Personal history of nicotine dependence
CPT/HCPCS: 36415; 74178; 80048; 80053; 80202; 81003; 81015; 82365; 83605; 85025; 86850; 86900; 86901; 87040; 87077; 87086; 87186; 88300; 88305; 93005; 96361; 96365; 96375; C1758; J0696; J3010; J3370; J7050

== ENCOUNTER 2018-11-24 07:07 | Inpatient (IN) | payer MEDICARE, OTHER ==
[2018-11-24 07:51] LABS: #Eosinphils 0.3 thou/uL (0.0-0.7); #Lymphocytes 1.2 thou/uL (1.20-3.40); #Monocytes 0.7 thou/uL (0.11-0.59); #Neutrophils 6.3 thou/uL (1.40-6.50); %Basophils 0.5 % (0.0-1.0); %Eosinophils 3.8 % (0.0-10.0); %Lymphocytes 14.3 % (21.0-51.0); %Monocytes 8.1 % (0.0-10.0); %Neutrophils 73.3 % (42.0-75.0); Hemoglobin 11.8 g/dL (14.0-18.0); Mean Corpuscular HGB CONC 30.9 g/dL (32.0-36.0); Mean Corpuscular Hemoglobin 27.9 pg (27.0-31.0); Mean Corpuscular Volume 90.3 fL (78.0-98.0); Mean Platelet Volume 8.1 fL (7.4-10.4); Platelet Count 167 thou/uL (130-400); RBC Distribution Width 14.4 % (11.5-14.5); Red Blood Cell (RBC) Count 4.25 mill/uL (4.70-6.10); White Blood Cell (WBC) Count 8.6 thou/uL (4.8-10.8)
[2018-11-24 08:14] LABS: ALT (SGPT) 24 U/L (8-55); AST (SGOT) 22 U/L (5-34); Albumin 3.1 g/dL (3.4-4.8); Alkaline Phosphatase 121 U/L (40-150); Anion Gap 13 mmol/L (10-20); BUN (Urea Nitrogen) 46 mg/dL (8.4-25.7); Bilirubin, Total 0.4 mg/dL (0.2-1.2); Calc. Creatinine Clearance 0 mL/min (70-130); Calcium 8.5 mg/dL (7.8-10.44); Carbon Dioxide 22 mmol/L (23-31); Chloride 111 mmol/L (98-107); Estimated GFR-MDRD 74; Globulin 3.1 g/dL (2.4-3.5); Glucose 72 mg/dL (83-110); Potassium 4.7 mmol/L (3.5-5.1); Protein, Total 6.2 g/dL (5.8-8.1); Sodium 141 mmol/L (136-145)
[2018-11-24 08:25] LABS: Blood, Urine Large (Negative); Glucose, Urine (Dipstick) Negative (Negative); Leukocyte Large (Negative); Protein, Urine (Dipstick) > or equal to 300 mg/dL (Neg-Trace); pH, Urine 7.5 (5.0-9.0)
[2018-11-24 08:26] LABS: Clarity Turbid (Clear); Nitrite Unable to Interpret (Negative)
[2018-11-24 08:27] LABS: Bilirubin Unable to Interpret (Negative); RBC/HPF GREATER THAN 50-TNTC HPF (0-3); Squamous Epithelial 0-3 HPF (0-3)
[2018-11-24] MEDS ORDERED: Piperacillin/Tazobactam 4.5 GM VIAL ONE (08:27)
[2018-11-24 08:28] LABS: Bacteria/HPF 3+ HPF (None Seen); Yeast-All Forms None Seen HPF (None Seen)
--- NOTE | 2018-11-24 08:55 | RAD ---
CHEST 1 VIEW: HISTORY: Cough. COMPARISON: 01/24/2017. FINDINGS: Normal cardiac silhouette. Chronic changes in lung parenchyma with superimposed interstitial infiltr ate. No pleural effusion or pneumothorax. No osseous abnormalities. IMPRESSION: Chronic change of the lung parenchyma with superimposed interstitial infiltrate. Continued surveilla nce is recommended. POS: CK
[2018-11-24] MEDS ORDERED: Acetaminophen 325 MG TAB PO PRN (10:13)
[2018-11-24] MEDS ORDERED: Ondansetron ODT 4 MG TAB PO PRN (10:13)
[2018-11-24] MEDS ORDERED: Ondansetron PF 4 MG/2 ML Vial IVP PRN ×2 (10:13→11:02)
[2018-11-24] MEDS ORDERED: Sodium Chloride 0.9% 1,000 ML IV SCH (10:15)
[2018-11-24] MEDS ORDERED: Bisacodyl 10 MG SUPP PR PRN (11:02)
[2018-11-24] MEDS ORDERED: hydrALAZINE 20 MG/ML VIAL SLOW IVP PRN (11:02)
[2018-11-24] MEDS ORDERED: Loperamide HCl 2 MG CAP PER TUBE PRN (11:02)
[2018-11-24] MEDS ORDERED: Senokot S 8.6-50 MG TAB PER TUBE PRN (11:02)
[2018-11-24] MEDS ORDERED: Artificial Tear Sol 15 ML BOT EA EYE PRN (11:02)
[2018-11-24] MEDS ORDERED: Calcium Carbonate 500 MG ChewTAB PER TUBE PRN (11:02)
[2018-11-24] MEDS ORDERED: Diabetic Tussin 200 MG/10 ML UDCUP PER TUBE PRN (11:02)
[2018-11-24] MEDS ORDERED: Sodium Chloride 0.65% Nasal 44 ML BOT EA NARE PRN (11:02)
[2018-11-24] MEDS ORDERED: Eucerin (Mineral Oil/Petrolatum,White) 30 gm Jar TOP PRN (11:02)
[2018-11-24] MEDS ORDERED: Ondansetron ODT 4 MG TAB SL PRN (11:02)
[2018-11-24] MEDS: Sodium Chloride 0.9% 1,000 ML IV SCH (11:16)
--- NOTE | 2018-11-24 11:44 | HP ---
PRIMARY CARE PHYSICIAN: Dr. Abby Benjamin. REASON FOR ADMISSION: Gross hematuria. HISTORY OF PRESENT ILLNESS: A 73-year-old male, who has history of stroke and aphasia. He has PEG tube and residual weakness. He had recurrent hematuria in recent past. He had a cystoscopy done and the patient was found with polypoid cystitis. This patient was brought from senior living to ER for gross hematuria. Initially, his blood pressure was 81/56, but after 2 L, his blood pressure improved to 107/67. The patient does have chronic cough. He denies any fever or chills. He does not have any shortness of breath. The patient is nonverbal from previous stroke, so he is not able to provide any good history by himself, but he is able to say yes or no to the question. Most of the review of systems reviewed with him and negative except his cough and weakness. REVIEW OF SYSTEMS: CONSTITUTIONAL: Negative for weight loss or gain, ability to conduct usual activities. SKIN: Negative for rash, itching. EYES: Negative for double vision, pain. ENT/MOUTH: Negative for nose bleeding, neck stiffness, pain, tenderness. CARDIOVASCULAR: Negative for palpitations, dyspnea on exertion, orthopnea. RESPIRATORY: Negative for shortness of breath, wheezing, cough, hemoptysis, fever or night sweats. GASTROINTESTINAL: Negative for poor appetite, abdominal pain, heartburn, nausea, vomiting, constipation, or diarrhea. GENITOURINARY: Negative for urgency, frequency, dysuria, nocturia. MUSCULOSKELETAL: Negative for pain, swelling. NEUROLOGIC/PSYCHIATRIC: Negative for anxiety, depression. ALLERGY/IMMUNOLOGIC: Negative for skin rash, bleeding tendency. Please see my HPI for pertinent positives and negatives. All other review of systems reviewed and negative except as mentioned in the HPI. PAST MEDICAL HISTORY: Oropharyngeal dysphagia with PEG tube placement, right knee contracture, nontraumatic intracranial hemorrhage, neuromuscular dysfunction of bladder, hemiplegia from previous hemorrhagic stroke, aphasia from previous hemorrhagic stroke, hypertension, dyslipidemia, gastroesophageal reflux disease, and polypoid cystitis. PAST SURGICAL HISTORY: PEG tube placement, cystoscopy, and bladder biopsy. PAST PSYCHIATRIC HISTORY: Anxiety and depression. SOCIAL HISTORY: The patient is from senior living. He has previous history of smoking about one pack per day. He does not have any alcohol abuse history. FAMILY HISTORY: No family history of coronary artery disease, stroke, or cancer. ALLERGIES: NO KNOWN DRUG ALLERGY. CURRENT HOME MEDICATIONS: 1. Aspirin 325 mg per tube daily. 2. Lipitor 20 mg per tube daily. 3. Clonidine 0.1 mg per tube q.6 hourly p.r.n. 4. Protonix 40 mg per tube daily. 5. Colace 100 mg per tube daily. 6. Calcium carbonate 600 mg per tube q.6 hourly p.r.n. 7. Scopolamine patch every three days. EMERGENCY ROOM COURSE: The patient has received vancomycin and Zosyn and IV fluid. PHYSICAL EXAMINATION: VITAL SIGNS: Currently, blood pressure 114/77, pulse 95, respiratory rate 20, temperature 97.7, saturation 96% on room air. Weight 66 kg. GENERAL: The patient is chronically ill, nonverbal, but able to nod yes to no questions. HEENT: Head, normocephalic and atraumatic. Eyes; pupils round, reactive to light. ENT; oropharynx within normal limits. Poor dentition. NECK: Supple. No JVD. No thyromegaly. LUNGS: Coarse breath sounds, but no obvious rhonchi or rales. CARDIAC: S1, S2. Regular without any significant murmur. ABDOMEN: PEG tube in place. Nontender. BACK: Unremarkable. No CVA tenderness. EXTREMITIES: Upper extremities; passive movement of all joints are normal with contracture. Lower extremity contracture noted on the right side. NEUROLOGIC: Baseline aphasia, dysphagia, and weakness and contracture noted. SKIN: No skin rash. GENITALIA: Molina catheter draining grossly blood in urine. SIGNIFICANT LABORATORY DATA: Chest x-ray based on my review chronic changes, some left-sided infiltration noted. CBC; WBC 8.6, hemoglobin 11.8, platelet 167. BMP; sodium 141, potassium 4.7, chloride 111, carbon dioxide 22, anion gap 13, BUN 46, creatinine 0.99, glucose 72, calcium 8.5. LFTs; AST 22, ALT 24, alkaline phosphatase 121, albumin 3.1. BNP 31.6. Urinalysis consistent with urinary tract infection as well as gross hematuria. ASSESSMENT/PLAN: 1. Gross hematuria. This patient had recently cystoscopy and bladder biopsy consistent with polypoid cystitis. Underlying infection cannot be entirely excluded. At this point, the patient will be given broad-spectrum antibiotic therapy with vancomycin and Zosyn. Urology will be consulted. The patient has Molina catheter and draining grossly bloody urine. He may need bladder irrigation to prevent clot retention. We will closely monitor in hospital. We will monitor hemoglobin and hematocrit. If hemoglobin drops, then we will consider blood transfusion. 2. Hypotension, resolved with IV fluid. Currently, we will hold on antihypertensive medication and we will continue with NS at 100 mL/h. 3. Left lower lobe pneumonia, suspecting from aspiration. The patient is already on broad-spectrum antibiotic therapy with vancomycin and Zosyn. We will monitor clinically. 4. History of hemorrhagic cerebrovascular accident with residual weakness, aphasia, contracture, and dysphagia. Supportive care will be given. We will continue with Lipitor 20 mg per tube at bedtime. We will hold on aspirin therapy. We will continue with Protonix and while in hospital PT/OT. 5. Oropharyngeal dysphagia. We will start PEG tube feeding while in hospital. 6. Dyslipidemia. We will continue Lipitor 20 mg per tube at bedtime. 7. Gastroesophageal reflux disease. We will continue Protonix per tube daily. 8. Deep venous thrombosis prophylaxis, SCD. Gastrointestinal prophylaxis, Protonix 40 mg per tube daily. CODE STATUS: The patient will be kept as a full code. The patient does not have any surrogate decision maker. DISPOSITION PLAN: Based on clinical course, we are expecting the patient's stay in hospital more than 2 midnights. Plan of care discussed with the patient in detail. Job ID: [id number]
[2018-11-24] MEDS: Piperacillin/Tazobactam 4.5 GM in Sodium Chloride 0.9% 100 ML IVPB SCH ×2 (14:06→19:52)
--- NOTE | 2018-11-24 14:21 | CON ---
DATE OF CONSULTATION: 11/24/2018 CONSULTING PHYSICIAN: Mike Nava MD. CONSULTED PHYSICIAN: Mukul Goldberg MD. REASON FOR CONSULTATION: Gross hematuria. HISTORY OF PRESENT ILLNESS: Mr. Barton is a 73-year-old white male with a history of CVA and aphasia. He was brought in from his skilled nursing due to gross hematuria. The patient does have an indwelling catheter and is in chronic urinary retention, which is managed with an indwelling Molina. He recently underwent cystoscopy with bladder biopsies and cystolitholapaxy with Dr. Goyal. During that time, the biopsies demonstrated polypoid cystitis without any evidence of tumor. He had done well afterwards with no blood in his urine, but then subsequently presented with gross hematuria and foul odor to his urine. His blood pressure at the time of presentation to the ER was 81/56, but responded to 2 L of fluid to 107/67. He does have a chronic cough and is nonverbal, so he is not able to provide any good history by himself. I have been consulted to help manage his hematuria. PAST MEDICAL HISTORY: 1. Dysphagia with PEG tube placement. 2. Contractures. 3. Intracranial hemorrhage. 4. Neurogenic bladder. 5. Hemiplegia. 6. Aphasia. 7. Hypertension. 8. Dyslipidemia. 9. Gastroesophageal reflux disease. PAST SURGICAL HISTORY: 1. PEG tube placement. 2. Cystoscopy and bladder biopsy. FAMILY HISTORY: Noncontributory. SOCIAL HISTORY: The patient lives [place] [facility] [place]. He has a previous history of smoking, but currently does not. He does not have any alcohol abuse or illicit drug use history. HOME MEDICATIONS: 1. Aspirin. 2. Lipitor. 3. Clonidine. 4. Protonix. 5. Colace. 6. Calcium carbonate. 7. Scopolamine patches. ALLERGIES: NONE. REVIEW OF SYSTEMS: A 12-point review of systems cannot be obtained as the patient is nonverbal. PHYSICAL EXAMINATION: VITAL SIGNS: Temperature 98.3, pulse 89, respirations 20, blood pressure 101/66, saturation 94% on room air. GENERAL: In no apparent distress. Appears older than stated age, otherwise alert and nods yes or no appropriately. HEENT: Normocephalic, atraumatic. Sclerae nonicteric. Pupils are symmetric and round. Moist mucous membranes. Trachea midline. CARDIOVASCULAR: Regular rate and rhythm. Normal S1, S2. Symmetric pulses. LUNGS: Coarse breath sounds, but no obvious crackles or wheezes. Symmetric expansion of lungs, nonlabored breathing. ABDOMEN: Soft, nontender, nondistended. Positive bowel sounds. PEG tube in place. : Molina catheter in place. Three-way catheter 20-Comoran with a 30 mL balloon. There is dark maroon urine in the catheter tubing. Scrotum is bilaterally nonedematous and nonfocal. EXTREMITIES: Demonstrate contractures, but no significant edema. NEUROLOGIC: The patient has baseline aphasia and dysphagia, multiple contractures noted. He does not follow commands well at the current time and a full neuro exam was not tested. SKIN: Warm, dry, poor turgor. No rashes or lesions. LABORATORY EVALUATION: The full set of labs in the Circular system which I have reviewed. Of note, the patient's white count is 8.6 with a hemoglobin of 11.8. Creatinine is 0.99. PROCEDURE: The patient's catheter was irrigated with approximately 1 L of normal saline with removal of a large amount of clot as well as significant retention of urine, approximately 600 mL. After thorough irrigation of the bladder, there were no further clots and the urine is a light peach color. This was then hooked up back to gravity drainage. ASSESSMENT AND PLAN: A 73-year-old white male with a good possibility of having a urinary tract infection which has spurred on bleeding resulting in clot retention. I agree with broad-spectrum antibiotics until cultures are finalized, at which time the antibiotic can be tapered down to a more appropriate course. He does not appear to have any significant bleeding ongoing and I would like to monitor his urine for at least 24 hours. If his urine starts getting bloody again, we may need to initiate continuous bladder irrigation through the three-way catheter that he already has in. I would recommend cessation of aspirin, which has already been done. Ultimately, the bleeding should stop on its own in most cases, and the patient can follow up with Dr. Goyal for further discussion and management of his bladder conditions. Job ID: [id number]
[2018-11-24] MEDS ORDERED: Piperacillin/Tazobactam 4.5 GM in Sodium Chloride 0.9% 100 ML IVPB SCH (15:00)
[2018-11-24] MEDS: Atorvastatin Calcium 20 MG TAB PER TUBE SCH (19:53)
[2018-11-24] MEDS: Vancomycin HCl 750 MG in Sodium Chloride 0.9% 250 ML 250 ML IVPB SCH (19:53)
[2018-11-24] MEDS ORDERED: Prevnar 13-Val Conj/PF 0.5 ML SYRINGE IM ONE (21:00)
[2018-11-25] MEDS: Piperacillin/Tazobactam 4.5 GM in Sodium Chloride 0.9% 100 ML IVPB SCH ×4 (01:47→20:23)
[2018-11-25] MEDS: Sodium Chloride 0.9% 1,000 ML IV SCH ×3 (01:52→13:00)
[2018-11-25 06:47] LABS: #Eosinphils 0.3 thou/uL (0.0-0.7); #Lymphocytes 1.2 thou/uL (1.20-3.40); #Monocytes 0.5 thou/uL (0.11-0.59); #Neutrophils 4.4 thou/uL (1.40-6.50); %Basophils 0.2 % (0.0-1.0); %Eosinophils 5.3 % (0.0-10.0); %Lymphocytes 18.7 % (21.0-51.0); %Neutrophils 68.7 % (42.0-75.0); Hemoglobin 9.9 g/dL (14.0-18.0); Mean Corpuscular Hemoglobin 28.5 pg (27.0-31.0); Mean Corpuscular Volume 91.9 fL (78.0-98.0); Mean Platelet Volume 8.4 fL (7.4-10.4); Platelet Count 141 thou/uL (130-400); RBC Distribution Width 14.4 % (11.5-14.5); Red Blood Cell (RBC) Count 3.45 mill/uL (4.70-6.10); White Blood Cell (WBC) Count 6.4 thou/uL (4.8-10.8)
[2018-11-25 07:24] LABS: ALT (SGPT) 20 U/L (8-55); AST (SGOT) 19 U/L (5-34); Albumin 2.8 g/dL (3.4-4.8); Alkaline Phosphatase 86 U/L (40-150); Anion Gap 10 mmol/L (10-20); BUN (Urea Nitrogen) 30 mg/dL (8.4-25.7); Bilirubin, Total 0.7 mg/dL (0.2-1.2); Calc. Creatinine Clearance 72 mL/min (70-130); Calcium 8.1 mg/dL (7.8-10.44); Carbon Dioxide 21 mmol/L (23-31); Chloride 112 mmol/L (98-107); Estimated GFR-MDRD 87; Globulin 2.4 g/dL (2.4-3.5); Glucose 78 mg/dL (83-110); Potassium 4.2 mmol/L (3.5-5.1); Protein, Total 5.2 g/dL (5.8-8.1); Sodium 139 mmol/L (136-145)
[2018-11-25] MEDS ORDERED: Loratadine 10 MG TAB PER TUBE PRN (07:35)
[2018-11-25] MEDS ORDERED: Pancrelipase DR 12000 1 CAP PER TUBE PRN ×2 (07:35→08:00)
[2018-11-25] MEDS ORDERED: Docusate 100 MG CAP PER TUBE SCH (09:00)
--- NOTE | 2018-11-25 09:12 | PDOC.PN ---
- Subjective Encounter Start Date: 11/25/18 Encounter Start Time: 07:45 pt is non verbal, he still has dark urine with some hematuria, no fever Patient seen and examined. No overnight events - Objective Resuscitation Status - Order Detail: 11/24/18 10:55 Resuscitation Status Routine Resuscitation Status: FULL: Full Resuscitation MAR Reviewed: Yes Vital Signs & Weight: Vital Signs (12 hours) Temp Pulse Resp BP Pulse Ox 11/25/18 07:37 97.6 F 85 16 111/73 95 11/25/18 04:00 98.5 F 86 16 98/62 92 L 11/25/18 00:00 98.4 F 87 18 108/72 92 L Weight Admit Weight 142 lb 8 oz Weight 143 lb 10.91 oz I&O: 11/24/18 11/25/18 11/26/18 06:59 06:59 06:59 Intake Total 2217 Output Total 1750 1200 Balance 467 -1200 Result Diagrams: 11/25/18 05:56 11/25/18 05:56 Phys Exam - Physical Examination Constitutional: NAD HEENT: PERRLA, moist MMs, sclera anicteric Neck: no JVD, supple Respiratory: no wheezing, no rhonchi few scattered basal rales Cardiovascular: RRR, no significant murmur, no rub Gastrointestinal: soft, non-tender, no distention, positive bowel sounds PEG+ Musculoskeletal: no edema, pulses present brock+ residual hemeperesis, dysphagia and aphasia Lymphatic: no nodes Psychiatric: normal affect Skin: no rash, normal turgor Dx/Plan (1) Aspiration pneumonia Code(s): J69.0 - PNEUMONITIS DUE TO INHALATION OF FOOD AND VOMIT Status: Acute (2) Gross hematuria Status: Acute (3) Anemia, normocytic normochromic Code(s): D64.9 - ANEMIA, UNSPECIFIED Status: Chronic (4) HTN (hypertension) Code(s): I10 - ESSENTIAL (PRIMARY) HYPERTENSION Status: Chronic Qualifiers: Hypertension type: essential hypertension Qualified Code(s): I10 - Essential (primary) hypertension Comment: (5) Hemiparesis and other late effects of cerebrovascular accident Code(s): I69.359 - HEMIPLGA FOLLOWING CEREBRAL INFARCTION AFFECTING UNSP SIDE; I69.398 - OTHER SEQUELAE OF CEREBRAL INFARCTION Status: Chronic (6) NPH (normal pressure hydrocephalus) Code(s): G91.2 - (IDIOPATHIC) NORMAL PRESSURE HYDROCEPHALUS Status: Chronic (7) PEG (percutaneous endoscopic gastrostomy) status Code(s): Z93.1 - GASTROSTOMY STATUS Status: Chronic (8) Polypoid cystitis Code(s): N30.80 - OTHER CYSTITIS WITHOUT HEMATURIA Status: Chronic - Plan cont current plan of care, continue antibiotics * continue vancomycin and zosyn * follow on culture * urology recommendation noted * repeat labs tomorrow * medication reviewed as below * symptomatic treatment. Review of Systems - Review of Systems Other: not reliable due to his non verbal status and cognitive status - Medications/Allergies Allergies/Adverse Reactions: Allergies Allergy/AdvReac Type Severity Reaction Status Date / Time No Known Drug Allergies Allergy Verified 09/18/18 17:15 Medications: Current Medications Acetaminophen (Tylenol) 650 mg PER TUBE Q4H PRN PRN Reason: Headache/Fever/Mild Pain (1-3) Albuterol/Ipratropium (Duoneb) 3 ml NEB [id number] PRN PRN Reason: SOB &/or Wheezing Lipase/Protease/Amylase ([place] [id number]) 1 cap PER TUBE PRN PRN PRN Reason: TUBE OCCLUSION Artificial Tears (Tears Renewed 15ml Bottle) 2 drop EA EYE PRN PRN PRN Reason: Dry Eyes Atorvastatin Calcium (Lipitor) 20 mg PER TUBE HS [facility] Last Admin: 11/24/18 19:53 Dose: 20 mg Bisacodyl (Dulcolax) 10 mg [place] DAILYPRN PRN PRN Reason: Constipation Calcium Carbonate (Tums) 1,000 mg PER TUBE Q4H PRN PRN Reason: Heartburn or Indigestion Docusate Sodium (Colace Liquid) 100 mg PER TUBE DAILY [facility] Guaifenesin (Robitussin Sf) 200 mg PER TUBE Q4H PRN PRN Reason: Cough Hydralazine HCl (Apresoline) 10 mg SLOW IVP Q4H PRN PRN Reason: SBP > 180 and HR < 70 Piperacillin Sod/Tazobactam (Sod 4.5 gm/ Sodium Chloride) 100 mls @ 200 mls/hr IVPB 0200,0800,1400,2000 [facility] Last Admin: 11/25/18 01:47 Dose: 100 mls Sodium Chloride (Normal Saline 0.9%) 1,000 mls @ 75 mls/hr IV .[id number] [facility] Last Admin: 11/25/18 01:52 Dose: 1,000 mls Vancomycin HCl 750 mg/ Sodium (Chloride) 250 mls @ 250 mls/hr IVPB Q12HR [facility] Last Admin: 11/24/18 19:53 Dose: 250 mls Loperamide HCl (Imodium) 2 mg PER TUBE PRN PRN PRN Reason: Diarrhea/Loose Stools Loratadine (Claritin) 10 mg PER TUBE DAILY PRN PRN Reason: Allergies Mineral Oil/White Petrolatum (Eucerin Cream) 0 gm TOP BIDPRN PRN PRN Reason: Dry Skin Miscellaneous Medication (Pharmacy To Dose) 1 each IVPB PRN PRN PRN Reason: Pharmacy to dose Ondansetron HCl (Zofran Odt) 4 mg SL Q6H PRN PRN Reason: Nausea/Vomiting Ondansetron HCl (Zofran) 4 mg IVP Q6H PRN PRN Reason: Nausea/Vomiting Pantoprazole Sodium (Protonix) 40 mg PER TUBE DAILY [facility] Saccharomyces Boulardii (Florastor) 250 mg PER TUBE DAILY [facility] Scopolamine (Transderm Scop) 1.5 mg TD Q3DAYS [place] Senna/Docusate Sodium (Senokot S) 2 tab PER TUBE BID PRN PRN Reason: Constipation Sodium Chloride ([place] Nasal [place] 0.65%) 0 ml EA NARE QIDPRN PRN PRN Reason: Nasal Congestion Sodium Chloride (Flush - Normal Saline) 10 ml IVF Q12HR [facility] Sodium Chloride (Flush - Normal Saline) 10 ml IVF PRN PRN PRN Reason: Saline Flush Trazodone HCl (Desyrel) 50 mg PER TUBE HS [facility]
[2018-11-25] MEDS: Scopolamine 1.5 mg/72 hour Patch TD SCH (09:48)
[2018-11-25] MEDS: Pantoprazole 40 MG GRANULES PACKET PER TUBE SCH (09:48)
[2018-11-25] MEDS: Vancomycin HCl 750 MG in Sodium Chloride 0.9% 250 ML 250 ML IVPB SCH ×2 (09:49→20:25)
[2018-11-25] MEDS: Docusate Sodium 100 MG/10 ML UDCUP PER TUBE SCH (09:49)
[2018-11-25] MEDS: Saccharomyces boulardii 250 MG CAP PER TUBE SCH (09:58)
--- NOTE | 2018-11-25 12:31 | PRG ---
DATE OF SERVICE: 11/25/2018 SUBJECTIVE: The patient does not report any discomfort or problems today. He shakes his head yes and no to my questions. He has not had any clot retention overnight. The nursing staff reports that his catheter has been draining, although it does appear a little bit bloody. OBJECTIVE: VITAL SIGNS: Temperature 97.5, pulse 91, respirations 18, blood pressure 100/65, saturations 95% on room air. GENERAL: No apparent distress, alert, nods yes and no appropriately. CARDIOVASCULAR: Regular rate and rhythm. ABDOMEN: Soft, nontender, nondistended. Positive bowel sounds. PEG tube in place. : Three-way Molina catheter in place with dark maroon urine in the tubing. The bladder was hand irrigated with approximately 250 mL of normal saline with immediate clearance of the blood. Due to the recurrent nature of the dark red urine, I did initiate continuous bladder irrigation at a slow drip which immediately cleared the patient's urine. EXTREMITIES: No clubbing, cyanosis, or edema. LABORATORY DATA: On laboratory evaluation, the full set of labs in the Payment plugin system which I have reviewed. Of note, the patient's hemoglobin has dropped down to 9.9, creatinine is 0.86. ASSESSMENT AND PLAN: A 73-year-old white male with gross hematuria, presumably from a urinary tract infection. Urine culture is currently growing gram-negative rods, but without final speciation and sensitivities. The patient is probably chronically colonized, but given the appearance of the gross hematuria spontaneously with extremely foul smelling urine, there is a decent chance that he does have an actual infection. With aspirin held, his hematuria appears to be clearing. I will keep the CBI running for now just to ensure that he does not develop any new clots, but I do anticipate that he will probably be able to stop his CBI either tomorrow or the day after. Dr. Goyal, his urologist will be back on tomorrow and can resume care for this patient. I will have the CBI held in the morning to see if his urine is clear or not, if that his CBI can be discontinued permanently and I will leave the followup care with Dr. Goyal's discretion. Job ID: [id number]
[2018-11-25] MEDS: traZODone HCl 50 MG TAB PER TUBE SCH (20:23)
[2018-11-25] MEDS: Atorvastatin Calcium 20 MG TAB PER TUBE SCH (20:23)
[2018-11-25 21:17] LABS: Vancomycin, Trough 13.1 ug/mL
[2018-11-26] MEDS: Sodium Chloride 0.9% 1,000 ML IV SCH ×2 (00:47→08:58)
[2018-11-26] MEDS: Piperacillin/Tazobactam 4.5 GM in Sodium Chloride 0.9% 100 ML IVPB SCH ×4 (01:44→21:14)
[2018-11-26 06:37] LABS: #Eosinphils 0.3 thou/uL (0.0-0.7); #Monocytes 0.4 thou/uL (0.11-0.59); %Basophils 0.6 % (0.0-1.0); %Eosinophils 5.5 % (0.0-10.0); %Lymphocytes 17.1 % (21.0-51.0); %Monocytes 6.4 % (0.0-10.0); %Neutrophils 70.4 % (42.0-75.0); Hemoglobin 10.1 g/dL (14.0-18.0); Mean Corpuscular Hemoglobin 29.1 pg (27.0-31.0); Mean Platelet Volume 7.8 fL (7.4-10.4); Platelet Count 138 thou/uL (130-400); RBC Distribution Width 14.3 % (11.5-14.5); Red Blood Cell (RBC) Count 3.46 mill/uL (4.70-6.10); White Blood Cell (WBC) Count 5.7 thou/uL (4.8-10.8)
[2018-11-26 06:51] LABS: Anion Gap 10 mmol/L (10-20); BUN (Urea Nitrogen) 19 mg/dL (8.4-25.7); Calc. Creatinine Clearance 75 mL/min (70-130); Calcium 8.3 mg/dL (7.8-10.44); Carbon Dioxide 24 mmol/L (23-31); Chloride 109 mmol/L (98-107); Estimated GFR-MDRD Greater than 90; Glucose 77 mg/dL (83-110); Potassium 3.8 mmol/L (3.5-5.1); Sodium 139 mmol/L (136-145)
[2018-11-26] MEDS: Vancomycin HCl 750 MG in Sodium Chloride 0.9% 250 ML 250 ML IVPB SCH ×2 (08:57→21:28)
[2018-11-26] MEDS: Docusate Sodium 100 MG/10 ML UDCUP PER TUBE SCH (09:21)
[2018-11-26] MEDS: Pantoprazole 40 MG GRANULES PACKET PER TUBE SCH (09:21)
[2018-11-26] MEDS: Saccharomyces boulardii 250 MG CAP PER TUBE SCH (09:21)
[2018-11-26] MEDS: Scopolamine 1.5 mg/72 hour Patch TD SCH (15:08)
[2018-11-26] MEDS ORDERED: Pancrelipase DR 12000 1 CAP FS PRN (18:20)
[2018-11-26] MEDS ORDERED: Sodium Bicarbonate Tab 325 MG TAB PER TUBE PRN (18:20)
[2018-11-26] MEDS: traZODone HCl 50 MG TAB PER TUBE SCH (21:17)
[2018-11-26] MEDS: Atorvastatin Calcium 20 MG TAB PER TUBE SCH (21:17)
[2018-11-27] MEDS: Piperacillin/Tazobactam 4.5 GM in Sodium Chloride 0.9% 100 ML IVPB SCH ×4 (02:57→21:04)
[2018-11-27] MEDS: Sodium Chloride 0.9% 1,000 ML IV SCH ×2 (05:47→21:05)
[2018-11-27 08:24] LABS: Vancomycin, Trough 18.7 ug/mL
[2018-11-27] MEDS: Pantoprazole 40 MG GRANULES PACKET PER TUBE SCH (08:30)
[2018-11-27] MEDS: Vancomycin HCl 750 MG in Sodium Chloride 0.9% 250 ML 250 ML IVPB SCH (08:30)
[2018-11-27] MEDS: Saccharomyces boulardii 250 MG CAP PER TUBE SCH (08:30)
[2018-11-27] MEDS: Docusate Sodium 100 MG/10 ML UDCUP PER TUBE SCH (08:33)
[2018-11-27] MEDS: Loratadine 10 MG TAB PER TUBE PRN (08:36)
[2018-11-27 13:07] VITALS: BMI 18.4
--- NOTE | 2018-11-27 16:20 | PQF ---
CLINICAL DOCUMENTATION IMPROVEMENT CLARIFICATION FORM: ICD-10 Updated PLEASE DO AN ADDENDUM TO THE PROGRESS NOTE WITH ANY DOCUMENTATION UPDATES OR ADDITIONS AND CARRY THROUGH TO DC SUMMARY. THANK YOU. DATE: 11/27/2018 ATTN: Dr. Larios Please exercise your independent, professional judgment in responding to the clarification form. Clinical indicators are provided on the bottom of this form for your review Please check appropriate box(es): [ ] Sepsis due to UTI due to indwelling brock catheter. [ ] Sepsis due to UTI not due to indwelling brock catheter. [ y ] Localized infection without sepsis [ ] Other diagnosis [ ] Unable to determine In addition, please specify: Present on Admission (POA): [ y] Yes [ ] No [ ] Unable to determine For continuity of documentation, please document condition throughout progress notes and discharge summary. Thank You. CLINICAL INDICATORS - SIGNS / SYMPTOMS / LABS H&P 11/24: Initially, his blood pressure was 81/56, but after 2L, his blood pressure improved to 107/67 Urinalysis consistent with urinary tract infection as well as gross hematuria. PN 11/26(Urology): pseudo/MRSA in urine blood culture - Had indwelling brock on arrival PN 11/26: Urosepsis Hematuria Pneumonia LLL RISKS: H&P: Pt had recently cystoscopy and bladder biopsy consistent with polypoid cystitis. Hypotension, resolved with IV fluid. Left lower lobe pneumonia. suspecting from aspiration. Hx hemorrhagic CVA Urology consult 11/24: Pt does have an indwelling catheter and is in chronic urinary retention, which is managed with an indwelling Brock. TREATMENT: Order 11/24: IV Zosyn 4.5 gm Order 11/24: IV Vancomycin Thank you, Ramona (This form is maintained as a part of the permanent medical record) 2014 [employer]. All Rights Reserved Ramona Sol RN, BSN [email or web address] Office: [phone] [facility]
[2018-11-27] MEDS: Atorvastatin Calcium 20 MG TAB PER TUBE SCH (21:04)
[2018-11-27] MEDS: traZODone HCl 50 MG TAB PER TUBE SCH (21:04)
[2018-11-27] MEDS: guaiFENesin ER 600 MG TAB PO SCH (21:04)
[2018-11-28] MEDS: Vancomycin HCl 750 MG in Sodium Chloride 0.9% 250 ML 250 ML IVPB SCH ×3 (00:04→23:24)
[2018-11-28] MEDS: Piperacillin/Tazobactam 4.5 GM in Sodium Chloride 0.9% 100 ML IVPB SCH ×4 (03:14→21:49)
[2018-11-28] MEDS: Pantoprazole 40 MG GRANULES PACKET PER TUBE SCH (08:28)
[2018-11-28] MEDS: Docusate Sodium 100 MG/10 ML UDCUP PER TUBE SCH (08:28)
[2018-11-28] MEDS: Scopolamine 1.5 mg/72 hour Patch TD SCH (08:28)
[2018-11-28] MEDS: Saccharomyces boulardii 250 MG CAP PER TUBE SCH (08:28)
[2018-11-28] MEDS: guaiFENesin ER 600 MG TAB PO SCH ×2 (08:28→21:49)
[2018-11-28] MEDS: Sodium Chloride 0.9% 1,000 ML IV SCH ×3 (08:29→23:36)
--- NOTE | 2018-11-28 12:47 | PQF ---
CLINICAL DOCUMENTATION IMPROVEMENT CLARIFICATION FORM: ICD-10 Updated PLEASE DO AN ADDENDUM TO THE PROGRESS NOTE WITH ANY DOCUMENTATION UPDATES OR ADDITIONS AND CARRY THROUGH TO DC SUMMARY. THANK YOU. DATE: 11/28/2018 ATTN: Dr. Larios Please exercise your independent, professional judgment in responding to the clarification form. Clinical indicators are provided on the bottom of this form for your review Please check appropriate box(s): [y ] UTI please specify if due to or related to (as applicable): [y ] Indwelling catheter [ ] Unable to determine etiology [ ] Other diagnosis [ ] Unable to determine In addition, please specify: Present on Admission (POA): [ y ] Yes [ ] No [ ] Unable to determine For continuity of documentation, please document condition throughout progress notes and discharge summary. Thank You. CLINICAL INDICATORS - SIGNS / SYMPTOMS / LABS ER Nursing Assessment: Tubes and ports: Indwelling urinary catheter present 20Fr draining moderate amount, of bloody, red urine, [employer] Urology 11/26: Pseudo/MRSA in urine Had indwelling kurtz on arrival PN 11/27: UTI RISKS: H&P 11/24: Pt was brought from alf to ER for gross hematuria. Pt had recently cystoscopy and bladder biopsy consistent with polypoid cystiis. Hx of hemorrhagic CVA. Urology 11/24: Pt does have an indwelling catheter and is in chronic urinary retention, which is managed with an indwelling Kurtz. TREATMENT: Urology 11/25: may need to initiate continuous bladder irrigation through the 3- way catheter that he already has in. Recommend cessation of aspirin. Order 11/24: IV Zosyn 4.5 gm Order 11/24: IV Vancomycin Thank you, Ramona (This form is maintained as a part of the permanent medical record) 2014 [employer]. All Rights Reserved Ramona Sol RN, BSN [email or web address] Office: [phone] [facility]
--- NOTE | 2018-11-28 20:33 | RAD ---
RIGHT WRIST: 11/28/18 Three views. HISTORY: Pain. Bones show osteopenia. Abnormal mottled density of the distal radius and ulna. Deformity of the scaph oid may represent old fracture. No acute fracture identified. IMPRESSION: 1. Mottled density with osteopenia. Recommend clinical correlation. Consider multiple myeloma or other chronic processes. 2. Mild deformity of the scaphoid may represent old injury. No acute fracture identified. POS: [facility]
--- NOTE | 2018-11-28 20:34 | RAD ---
RIGHT HAND: 11/28/18 HISTORY: Hand pain. FINDINGS/IMPRESSION: Osteopenia. MCP and IP joints unremarkable with no significant degenerative change. No fracture or a cute abnormality. POS: [facility]
[2018-11-28] MEDS: Atorvastatin Calcium 20 MG TAB PER TUBE SCH (21:49)
[2018-11-28] MEDS: traZODone HCl 50 MG TAB PER TUBE SCH (21:49)
[2018-11-28] MEDS: Acetaminophen 325 MG TAB PER TUBE PRN (21:55)
[2018-11-28] MEDS: Loratadine 10 MG TAB PER TUBE PRN (21:55)
[2018-11-29] MEDS: Piperacillin/Tazobactam 4.5 GM in Sodium Chloride 0.9% 100 ML IVPB SCH ×3 (02:28→15:20)
[2018-11-29] MEDS: Acetaminophen 325 MG TAB PER TUBE PRN (03:09)
[2018-11-29 07:04] LABS: #Eosinphils 0.4 thou/uL (0.0-0.7); #Lymphocytes 0.8 thou/uL (1.20-3.40); #Monocytes 0.4 thou/uL (0.11-0.59); #Neutrophils 3.1 thou/uL (1.40-6.50); %Basophils 0.7 % (0.0-1.0); %Lymphocytes 17.2 % (21.0-51.0); %Monocytes 8.9 % (0.0-10.0); %Neutrophils 64.2 % (42.0-75.0); Hemoglobin 9.7 g/dL (14.0-18.0); Mean Corpuscular Hemoglobin 29.2 pg (27.0-31.0); Mean Corpuscular Volume 91.3 fL (78.0-98.0); Mean Platelet Volume 8.1 fL (7.4-10.4); Platelet Count 151 thou/uL (130-400); RBC Distribution Width 14.8 % (11.5-14.5); Red Blood Cell (RBC) Count 3.32 mill/uL (4.70-6.10); White Blood Cell (WBC) Count 4.8 thou/uL (4.8-10.8)
[2018-11-29 07:19] LABS: Anion Gap 9 mmol/L (10-20); BUN (Urea Nitrogen) 11 mg/dL (8.4-25.7); Calc. Creatinine Clearance 75 mL/min (70-130); Carbon Dioxide 23 mmol/L (23-31); Chloride 111 mmol/L (98-107); Estimated GFR-MDRD Greater than 90; Glucose 121 mg/dL (83-110); Potassium 3.6 mmol/L (3.5-5.1); Sodium 139 mmol/L (136-145)
[2018-11-29] MEDS: Pantoprazole 40 MG GRANULES PACKET PER TUBE SCH (09:36)
[2018-11-29] MEDS: Saccharomyces boulardii 250 MG CAP PER TUBE SCH (09:36)
[2018-11-29] MEDS: guaiFENesin ER 600 MG TAB PO SCH (09:36)
[2018-11-29] MEDS: Docusate Sodium 100 MG/10 ML UDCUP PER TUBE SCH (09:37)
[2018-11-29] MEDS: Vancomycin HCl 750 MG in Sodium Chloride 0.9% 250 ML 250 ML IVPB SCH (09:37)
[2018-11-29] MEDS: Sodium Chloride 0.9% 1,000 ML IV SCH (15:21)
[2018-11-29 17:30] VITALS: BP 119/69; TEMP 97.4
== END 2018-11-29 17:20 | DRG 698 ==
LOC: ERS 07:07 → OBSVTOIN 08:45 → T4-A 08:45
PROVIDERS: ADMIT Internal Medicine; ATTEND Internal Medicine
DX: T83.511A Infection and inflammatory reaction due to indwelling urethral catheter, initial encounter (principal); J69.0 Pneumonitis due to inhalation of food and vomit; G91.2 (Idiopathic) normal pressure hydrocephalus; I69.359 Hemiplegia and hemiparesis following cerebral infarction affecting unspecified side; N39.0 Urinary tract infection, site not specified; R31.0 Gross hematuria; I69.320 Aphasia following cerebral infarction; R13.12 Dysphagia, oropharyngeal phase; I10 Essential (primary) hypertension; E78.5 Hyperlipidemia, unspecified; K21.9 Gastro-esophageal reflux disease without esophagitis; F41.9 Anxiety disorder, unspecified; F32.9 Major depressive disorder, single episode, unspecified; F17.210 Nicotine dependence, cigarettes, uncomplicated; M24.561 Contracture, right knee; D64.9 Anemia, unspecified; Z79.82 Long term (current) use of aspirin; Z93.1 Gastrostomy status
CPT/HCPCS: 36415; 71045; 80048; 80053; 80202; 81003; 81015; 83605; 83880; 85025; 87040; 87045; 87046; 87077; 87086; 87186; 87324; 87449; 87493; 87899; 96365; 96367; J2543; J3370; J7050

== ENCOUNTER 2019-01-21 18:38 | Inpatient (IN) | payer MEDICARE, OTHER ==
[2019-01-21] MEDS ORDERED: Metoclopramide HCl 10 MG/2 ML VIAL ONE (19:40)
[2019-01-21] MEDS ORDERED: cefTRIAXone\\ROCEPHIN 1 GM VIAL ONE (19:42)
--- NOTE | 2019-01-21 19:58 | RAD ---
Frontal radiograph chest: 01/21/2019 COMPARISON: 11/24/2018 HISTORY: Malfunctioning Molina catheter FINDINGS: Heart and mediastinal contours appear unremarkable, limited in assessment secondary to rota tion to the right. Lungs appear clear. IMPRESSION: No acute findings.
[2019-01-21 20:00] LABS: Hemoglobin 14.5 g/dL (14.0-18.0); Mean Corpuscular HGB CONC 31.8 g/dL (32.0-36.0); Mean Corpuscular Hemoglobin 28.2 pg (27.0-31.0); Mean Corpuscular Volume 88.9 fL (78.0-98.0); Mean Platelet Volume 8.1 fL (7.4-10.4); Platelet Count 215 thou/uL (130-400); RBC Distribution Width 15.8 % (11.5-14.5); Red Blood Cell (RBC) Count 5.14 mill/uL (4.70-6.10); White Blood Cell (WBC) Count 23.4 thou/uL (4.8-10.8)
[2019-01-21 20:15] LABS: Bilirubin Negative (Negative); Blood, Urine Large (Negative); Clarity TURBID (Clear); Glucose, Urine (Dipstick) Negative (Negative); Leukocyte Large (Negative); Nitrite Positive (Negative); Protein, Urine (Dipstick) 300 mg/dL (Neg-Trace); Specific Gravity, Urine 1.016 (1.002-1.036); Urobilinogen 0.2 mg/dL (0.2-1.0); pH, Urine 8.5 (5.0-9.0)
[2019-01-21 20:15] LABS: Anisocytosis SLIGHT = 6-15 cells (100X) (0-5/hpf); Band 16 % (5-11); Lymphocytes 4 % (21-51); MDiff Complete? YES; Monocytes 2 % (0-10); Neutrophil 78 % (42-75); Platelet Morphology Comment Appears Adequate; Polychromasia SLIGHT = 2-3 cells (100X) (0-2/hpf); Vacuoles SLIGHT
[2019-01-21 20:17] LABS: Bacteria/HPF 4+ HPF (None Seen); RBC/HPF GREATER THAN 50-TNTC HPF (0-3)
[2019-01-21 20:18] LABS: Pathc Cast-AUWi Flag 4.16 (0-2.49)
[2019-01-21 20:19] LABS: ALT (SGPT) 28 U/L (8-55); AST (SGOT) 25 U/L (5-34); Albumin 3.9 g/dL (3.4-4.8); Alkaline Phosphatase 130 U/L (40-150); Anion Gap 17 mmol/L (10-20); BUN (Urea Nitrogen) 49 mg/dL (8.4-25.7); Bilirubin, Total 0.6 mg/dL (0.2-1.2); Calc. Creatinine Clearance 0 mL/min (70-130); Calcium 9.6 mg/dL (7.8-10.44); Carbon Dioxide 21 mmol/L (23-31); Chloride 102 mmol/L (98-107); Estimated GFR-MDRD 47; Globulin 3.6 g/dL (2.4-3.5); Glucose 116 mg/dL (83-110); Protein, Total 7.5 g/dL (5.8-8.1); Sodium 135 mmol/L (136-145)
[2019-01-21 20:39] LABS: Crystals/HPF 2+ TRIPLE PHOS HPF (Negative); Hyaline Casts/LPF 0-3 HYALINE CAST LPF (0-3 Hyaline); Other Casts/LPF None Seen LPF (0-3 Hyaline)
[2019-01-22 00:16] LABS: Lactic Acid 1.9 mmol/L (0.5-2.2)
[2019-01-22] MEDS ORDERED: Piperacillin/Tazobactam 3.375 GM VIAL ONE (10:15)
[2019-01-22] MEDS ORDERED: Senokot S 8.6-50 MG TAB PER TUBE PRN (19:17)
[2019-01-22] MEDS ORDERED: Hydrocerin (Eucerin) Cream 120 gm Jar TOP PRN (19:18)
[2019-01-22] MEDS ORDERED: Loratadine 10 MG TAB PER TUBE PRN (19:19)
[2019-01-22] MEDS ORDERED: Ondansetron ODT 4 MG TAB PER TUBE PRN (19:19)
[2019-01-22] MEDS ORDERED: Loperamide HCl 2 MG CAP PER TUBE PRN (19:19)
[2019-01-22] MEDS ORDERED: Acetaminophen 500 MG TAB PER TUBE PRN (19:21)
[2019-01-22] MEDS ORDERED: Artificial Tear Sol 15 ML BOT EA EYE PRN (19:21)
[2019-01-22] MEDS ORDERED: Bisacodyl 10 MG SUPP PR PRN (19:22)
[2019-01-22] MEDS ORDERED: Calcium Carbonate 600 MG TAB PER TUBE PRN (19:22)
[2019-01-22] MEDS ORDERED: Diabetic Tussin 200 MG/10 ML UDCUP PER TUBE PRN (19:23)
[2019-01-22] MEDS ORDERED: diphenhydrAMINE 25 MG CAP PER TUBE PRN (19:23)
[2019-01-22] MEDS: Sodium Chloride 0.9% 1,000 ML IV SCH (21:07)
[2019-01-22] MEDS: Atorvastatin Calcium 20 MG TAB PER TUBE SCH (21:08)
[2019-01-22] MEDS: traZODone HCl 50 MG TAB PER TUBE SCH (21:09)
[2019-01-22] MEDS: Piperacillin/Tazobactam 3.375 GM in Sodium Chloride 0.9% 100 ML IVPB SCH (21:09)
--- NOTE | 2019-01-22 21:09 | HP ---
CHIEF COMPLAINT: Clogged Molina catheter. HISTORY OF PRESENT ILLNESS: Mr. Barton is a 73-year-old male with past medical history of oropharyngeal dysphagia status post CVA due to hemorrhagic stroke, hypertension, and neurogenic bladder, was sent to the hospital because his Molina catheter was clogged. It was not functioning well. He needed replacement, so the patient did not have any fever. Did not have hematuria. No headache. No dizziness. Did not complain of anything according to the detention. But in the ER, the patient was found to have marked UTI with pus on the Molina catheter and also leukocytosis. The patient received a dose of Zosyn and vancomycin and being admitted for further evaluation and management. PAST MEDICAL HISTORY: 1. Oropharyngeal dysphagia status post PEG tube. 2. Status post hemorrhagic stroke. 3. Aphasia. 4. Neurogenic bladder. 5. Insomnia. 6. Gastroesophageal reflux disease. 7. Hypertension. 8. Hyperlipidemia. 9. The patient is nonambulatory on PEG tube feeding, nonverbal. PAST SURGICAL HISTORY: Status post PEG tube placement. CURRENT MEDICATIONS: The patient is on; 1. Scopolamine patch q.3 days. 2. Dulcolax p.r.n. 3. Trazodone 50 mg at bedtime. 4. Benadryl p.r.n. 5. Clonidine. 6. Zofran p.r.n. also. 7. Claritin 1 daily. 8. Aspirin 81 mg daily. 9. Atorvastatin 20 mg daily. 10. Omeprazole 40 mg daily. 11. The patient on tube feeding. ALLERGIES: NKDA. FAMILY HISTORY: Nothing contributory. SOCIAL HISTORY: Lives at [facility]. No history of smoking. No history of alcohol. REVIEW OF SYSTEMS: CARDIOVASCULAR: No chest pain. No shortness of breath. RESPIRATORY: No fever or cough. GASTROINTESTINAL: No nausea or vomiting. No abdominal pain. CENTRAL NERVOUS SYSTEM: No headache. No dizziness. PHYSICAL EXAMINATION: GENERAL: The patient is alert and awake, but not very communicating. VITAL SIGNS: Temperature 98, pulse 100, respiratory rate 20, and blood pressure 100/60. HEENT: Head is normocephalic and atraumatic. Pupils equal and reactive to light. NECK: Supple. No JVD. LUNGS: Bilateral air entry present. No rales. No rhonchi. HEART: S1 and S2. Regular. ABDOMEN: Soft. No distention. No tenderness. Normal bowel sounds. RECTAL: Deferred. CENTRAL NERVOUS SYSTEM: No new deficit. LABORATORY DATA: CBC shows WBC 23,000, hemoglobin 14, hematocrit 45, and platelets 215. Metabolic panel; sodium 135, potassium 5, chloride 102, CO2 of 21, BUN 49, creatinine 1.4, glucose 116, and lactic acid 3.2. Urinalysis showed wbc 7 to 10, rbc greater than 50, bacteria 4+, and leukocyte esterase positive. Chest x-ray unremarkable. ASSESSMENT: 1. Possible urosepsis. 2. Leukocytosis and fever, rule out sepsis. 3. Acute kidney injury. 4. Clogged Molina catheter. 5. Status post hemorrhagic stroke. 6. Aphasia. 7. Gastroesophageal reflux disease. 8. Oropharyngeal dysphagia status post percutaneous endoscopic gastrostomy. 9. Urosepsis. PLAN: 1. Vital signs q.4. 2. Activity as tolerated. 3. Allergies, NKDA. 4. Zosyn 3.375 g IV piggyback q.6 hours. 5. Vancomycin 1 g IV piggyback q.12 hours. 6. Continue IV fluids half normal at 60 mL/h. 7. Continue detention medications. 8. Follow the urine and blood cultures. The patient should be able to go back to detention in few days. Job ID: [id number]
[2019-01-23] MEDS: Piperacillin/Tazobactam 3.375 GM in Sodium Chloride 0.9% 100 ML IVPB SCH (03:55)
[2019-01-23 06:50] LABS: #Eosinphils 0.3 thou/uL (0.0-0.7); #Lymphocytes 1.1 thou/uL (1.20-3.40); #Monocytes 0.6 thou/uL (0.11-0.59); #Neutrophils 6.4 thou/uL (1.40-6.50); %Basophils 0.2 % (0.0-1.0); %Eosinophils 3.9 % (0.0-10.0); %Lymphocytes 13.1 % (21.0-51.0); %Neutrophils 75.8 % (42.0-75.0); Hemoglobin 10.6 g/dL (14.0-18.0); Mean Corpuscular HGB CONC 32.2 g/dL (32.0-36.0); Mean Corpuscular Volume 90.1 fL (78.0-98.0); Platelet Count 154 thou/uL (130-400); RBC Distribution Width 15.4 % (11.5-14.5); Red Blood Cell (RBC) Count 3.66 mill/uL (4.70-6.10); White Blood Cell (WBC) Count 8.4 thou/uL (4.8-10.8)
[2019-01-23 07:21] LABS: Anion Gap 12 mmol/L (10-20); BUN (Urea Nitrogen) 38 mg/dL (8.4-25.7); Calc. Creatinine Clearance 59 mL/min (70-130); Calcium 8.7 mg/dL (7.8-10.44); Carbon Dioxide 25 mmol/L (23-31); Chloride 110 mmol/L (98-107); Estimated GFR-MDRD 66; Glucose 128 mg/dL (83-110); Potassium 4.5 mmol/L (3.5-5.1); Sodium 142 mmol/L (136-145)
[2019-01-23] MEDS ORDERED: Prevnar 13-Val Conj/PF 0.5 ML SYRINGE IM ONE (09:00)
[2019-01-23] MEDS ORDERED: Scopolamine 1.5 mg/72 hour Patch TOP SCH (09:00)
[2019-01-23] MEDS: Docusate 100 MG CAP PER TUBE SCH (09:56)
[2019-01-23] MEDS: Saccharomyces boulardii 250 MG CAP PER TUBE SCH (09:56)
[2019-01-23] MEDS: Pantoprazole 40 MG GRANULES PACKET PER TUBE SCH (09:56)
[2019-01-23] MEDS: Aspirin Chewable 81 MG TAB PER TUBE SCH (09:56)
[2019-01-23] MEDS: Pancrelipase DR 12000 1 CAP FS PRN ×2 (10:16→14:58)
[2019-01-23] MEDS: Sodium Bicarbonate Tab 325 MG TAB PER TUBE PRN ×2 (11:33→14:58)
[2019-01-23] MEDS: Sodium Chloride 0.9% 1,000 ML IV SCH (12:25)
[2019-01-23] MEDS ORDERED: Vancomycin HCl 1 GM in Premix Bag 1 BAG IVPB SCH (13:00)
[2019-01-23 13:30] VITALS: BMI 19.3
[2019-01-23] MEDS ORDERED: cefTRIAXone\\ROCEPHIN 2 GM in Sodium Chloride 0.9% 100 ML IVPB SCH (16:00)
--- NOTE | 2019-01-23 19:45 | PRG ---
DATE OF SERVICE: 01/23/2019 Nurse has asked me to evaluate the patient as the PEG tube was clogged with the pill. The PEG tube has actually been replaced from a PEG that was placed by us in 2018. It looks in good shape and appearance. There was nothing matted in the tube and even pulling away from the skin little bit, it seemed fine, went ahead and flushed with some water. They have been flushing with Coke and other carbonated things earlier today. Apparently, a Protonix pill got stuck in it. I was able to flush the pill through aspirate gastric contents. The PEG is working fine and we will sign off. If could be of any further assistance, please call. Job ID: [id number]
[2019-01-23] MEDS: traZODone HCl 50 MG TAB PER TUBE SCH (21:46)
[2019-01-23] MEDS: Atorvastatin Calcium 20 MG TAB PER TUBE SCH (21:46)
[2019-01-24] MEDS: Sodium Chloride 0.9% 1,000 ML IV SCH (04:00)
[2019-01-24] MEDS: Saccharomyces boulardii 250 MG CAP PER TUBE SCH (10:02)
[2019-01-24] MEDS: Aspirin Chewable 81 MG TAB PER TUBE SCH (10:02)
[2019-01-24] MEDS: Docusate 100 MG CAP PER TUBE SCH (10:02)
[2019-01-24] MEDS: Pantoprazole 40 MG GRANULES PACKET PER TUBE SCH (10:03)
[2019-01-24 12:13] LABS: Vancomycin, Trough 4.1 ug/mL
[2019-01-24 17:43] VITALS: BP 111/70; TEMP 96.6
--- NOTE | 2019-01-25 00:26 | DIS ---
DATE OF ADMISSION: 01/22/2019 DATE OF DISCHARGE: 01/24/2019 PRIMARY CARE PROVIDER: Dr. Larios. DISCHARGE DIAGNOSES: 1. Urinary tract infection. 2. Molina catheter malfunction. CONDITION OF PATIENT ON THE DAY OF DISCHARGE: Stable. I assessed Mr. Barton on the day of discharge. He denies any chest pain or shortness of breath. Vital signs are stable. S1 and S2 are heard, regular. Lungs are clear to auscultation bilaterally. DISCHARGE MEDICATIONS: In addition to his pre-admission home medications as dictated by Dr. Larios on his history and physical note dated 01/22/2019, the patient is being discharged back to [facility] on amoxicillin 500 mg 4 times a day. CONSULTATIONS DURING THIS HOSPITALIZATION: Gastroenterology, Dr. Crooks. HOSPITAL COURSE: Mr. Barton is a pleasant 73-year-old gentleman, who was admitted to [facility] for malfunctioning Molina catheter on 01/22/2019. He was also found to have urinary tract infection. Urine cultures grew Proteus mirabilis which is resistant to ciprofloxacin, levofloxacin, nitrofurantoin, and trimethoprim/sulfamethoxazole. It is sensitive to ampicillin. He was also seen by Gastroenterology Service because there was concern whether his PEG tube was functioning. It was found to be working well. He is being discharged in a stable condition. Many thanks for allowing me to participate in Mr. Barton's care. Please feel free to contact me with any questions or concerns. TOTAL AMOUNT OF TIME SPENT COORDINATING THIS DISCHARGE: 20 minutes. Job ID: [id number]
== END 2019-01-24 17:30 | DRG 699 ==
LOC: ERS 18:38 → ERHOLD 01-22 00:39 → 2NO 01-22 15:33
PROVIDERS: ADMIT Internal Medicine; ATTEND Internal Medicine
DX: T83.018A Breakdown (mechanical) of other urinary catheter, initial encounter (principal); N39.0 Urinary tract infection, site not specified; N17.9 Acute kidney failure, unspecified; B96.4 Proteus (mirabilis) (morganii) as the cause of diseases classified elsewhere; I10 Essential (primary) hypertension; N31.9 Neuromuscular dysfunction of bladder, unspecified; G47.00 Insomnia, unspecified; K21.9 Gastro-esophageal reflux disease without esophagitis; E78.5 Hyperlipidemia, unspecified; R13.12 Dysphagia, oropharyngeal phase; I69.321 Dysphasia following cerebral infarction; I69.320 Aphasia following cerebral infarction; Z93.1 Gastrostomy status; Z79.82 Long term (current) use of aspirin; Z79.899 Other long term (current) drug therapy
CPT/HCPCS: 36415; 71045; 80048; 80053; 80202; 81003; 81015; 83605; 85025; 87040; 87077; 87086; 87186; J0696; J2543; J2765; J3370; J3490; Q0163

== ENCOUNTER 2019-05-27 08:06 | Inpatient (IN) | payer MEDICARE, MEDICAID ==
[2019-05-27] MEDS ORDERED: cefTRIAXone\\ROCEPHIN 2 GM VIAL ONE (08:55)
[2019-05-27] MEDS ORDERED: Sodium Chloride 0.9% 100 ML ONE (08:55)
[2019-05-27 09:27] LABS: Hemoglobin 12.1 g/dL (14.0-18.0); Mean Corpuscular HGB CONC 32.1 g/dL (32.0-36.0); Mean Corpuscular Hemoglobin 27.4 pg (27.0-31.0); Mean Corpuscular Volume 85.5 fL (78.0-98.0); Mean Platelet Volume 8.1 fL (7.4-10.4); Platelet Count 214 thou/uL (130-400); Red Blood Cell (RBC) Count 4.39 mill/uL (4.70-6.10); White Blood Cell (WBC) Count 8.1 thou/uL (4.8-10.8)
[2019-05-27 09:33] LABS: INR-International Normal Ratio 1.1; PTT 30.9 SEC (22.9-36.1); Prothrombin Time 13.9 SEC (12.0-14.7)
[2019-05-27] MEDS ORDERED: Fentanyl 100 MCG/2 ML VIAL ONE ×2 (09:39→11:29)
[2019-05-27 09:47] LABS: Anion Gap 14 mmol/L (10-20); BUN (Urea Nitrogen) 30 mg/dL (8.4-25.7); Calc. Creatinine Clearance 67 mL/min (70-130); Carbon Dioxide 25 mmol/L (23-31); Chloride 103 mmol/L (98-107); Estimated GFR-MDRD 80; Glucose 88 mg/dL (83-110); Potassium 4.7 mmol/L (3.5-5.1); Sodium 137 mmol/L (136-145)
[2019-05-27] MEDS ORDERED: D5 1/2 NS w/20 mEq KCL 1,000 ML IV SCH (13:45)
[2019-05-27] MEDS ORDERED: Ondansetron ODT 4 MG TAB PER TUBE PRN (13:48)
[2019-05-27] MEDS ORDERED: Artificial Tear Sol 15 ML BOT EA EYE PRN (13:48)
[2019-05-27] MEDS ORDERED: cloNIDine 0.1 MG TAB PER TUBE PRN (13:48)
[2019-05-27] MEDS ORDERED: Calcium Carbonate 600 MG TAB PER TUBE PRN (13:48)
[2019-05-27] MEDS ORDERED: diphenhydrAMINE 25 MG CAP PER TUBE PRN (13:48)
[2019-05-27] MEDS ORDERED: Loratadine 10 MG TAB PER TUBE PRN (13:48)
[2019-05-27] MEDS ORDERED: Pancrelipase DR 12000 1 CAP PER TUBE PRN (13:48)
[2019-05-27] MEDS ORDERED: Loperamide HCl 2 MG CAP PER TUBE PRN (13:48)
[2019-05-27] MEDS ORDERED: Bisacodyl 10 MG SUPP PR PRN (13:48)
[2019-05-27] MEDS ORDERED: Diabetic Tussin 200 MG/10 ML UDCUP PER TUBE PRN (13:48)
[2019-05-27] MEDS ORDERED: Rocuronium Bromide 10 MG/ML (10ML VIAL) ONE (14:00)
[2019-05-27] MEDS ORDERED: Dexamethasone 20 MG/5 ML VIAL ONE (14:00)
[2019-05-27] MEDS ORDERED: Lidocaine 1% PF 5 ML VIAL ONE (14:00)
[2019-05-27] MEDS ORDERED: Glycopyrrolate 0.2 MG/ML 5 ML SYRINGE ONE (14:00)
[2019-05-27] MEDS ORDERED: Ondansetron PF 4 MG/2 ML Vial ONE (14:00)
[2019-05-27] MEDS ORDERED: PHENYLEPHRINE-NS 100 MCG/ML 10 ML SYRINGE ONE (14:00)
--- NOTE | 2019-05-27 15:06 | PRG ---
DATE OF SERVICE: This is a 73-year-old male, who had a suprapubic tube placed today because of urinary retention, frequent UTIs, and history of gross hematuria requiring hospital admissions over the last year or so on a frequent basis. The procedure was done without any event; however, he was still having fairly grossly bloody urine. As he is a 73-year-old male going back to a alf, it was not felt safe for him to go home. So, when start him on a continuous bladder irrigation, we will admit him for 1 to 2 nights for care and for bladder irrigation on a continuous basis. Job ID: [id number]
--- NOTE | 2019-05-27 16:05 | OP ---
DATE OF PROCEDURE: 05/27/2019 PREOPERATIVE DIAGNOSIS: Urinary retention. POSTOPERATIVE DIAGNOSIS: Urinary retention. PROCEDURE PERFORMED: Cystoscopy and placement of suprapubic tube. ANESTHETIC: General with local. ANESTHESIA: General with local. ESTIMATED BLOOD LOSS: Less than 100. DRAINS PLACED: A 22-Saudi Arabian 30 mL suprapubic tube, 20-Saudi Arabian 15 mL urethral catheter. FINDINGS: There was no stricture disease. Moderate BPH. Some catheter-related cystitis. INDICATIONS FOR PROCEDURE: This is a 73-year-old white male with urinary retention, who has been admitted frequently with hematuria related to UTIs, it is hoped that perhaps having a suprapubic tube rather than urethral catheter, incidence of this bleeding. He has had Proteus in his urine generally growing and he is receiving a 2 g of Rocephin IV piggyback now. DESCRIPTION OF PROCEDURE: Obtained written and verbal consent from the patient after receiving the IV Rocephin, he was taken to the operating suite. He was placed in a supine position on the treatment table. PlexiPulses were placed on his lower extremities and turned on. He was given a general anesthetic and oral obturator intubation. He was placed in the dorsal lithotomy position and he was sterilely prepped and draped. Cystoscopy was performed with a 22-Saudi Arabian sheath, this was well lubricated, passed under direct vision into the male urethra with the aid of a 30-degree lens and video camera and monitor. The bladder was filled and emptied a number of times as it did have some debris on the floor and this was all flushed out until it was clear. Then, using a 70-degree lens, we filled up the bladder until it was very full and easy to palpate and then infiltrated 2 fingerbreadths above the pubic symphysis with a spinal needle and 0.25% Xylocaine without Marcaine and then passed this into the bladder. This was appeared to be in a good position, so we removed that, removed the scope the Lowsley and then cut down on the Lowsley in the same site that we had infiltrated until the Lowsley came up through the incision. We then used this to direct 22-Saudi Arabian 30 mL catheter with the aid of a #1 silk through into the bladder, blowing up the balloon under direct vision. We then removed the instruments, passed the urethral Molina catheter and hand irrigated both of these. This was just like pink colored and did not appear to be significantly bleeding. They were both draining well. They were hooked up to drainage bag. He was taken out of the dorsal lithotomy position and a dressing was placed at the SP site after we secured it to the skin with a 0 silk suture ligature. He was awakened, extubated, and taken by stretcher to recovery room. Job ID: [id number]
[2019-05-27 17:24] VITALS: BMI 19.0
[2019-05-27] MEDS ORDERED: traZODone HCl 50 MG TAB PER TUBE SCH (21:00)
[2019-05-27] MEDS ORDERED: Atorvastatin Calcium 20 MG TAB PER TUBE SCH (21:00)
[2019-05-27] MEDS ORDERED: Scopolamine 1.5 mg/72 hour Patch TOP SCH (23:00)
[2019-05-28] MEDS: Acetaminophen 500 MG TAB PER TUBE PRN ×2 (05:04→08:41)
[2019-05-28] MEDS ORDERED: cefTRIAXone\\ROCEPHIN 1 GM in Sodium Chloride 0.9% 100 ML IVPB SCH (09:00)
[2019-05-28] MEDS ORDERED: Docusate 100 MG CAP PER TUBE SCH (09:00)
[2019-05-28] MEDS ORDERED: Prevnar 13-Val Conj/PF 0.5 ML SYRINGE IM ONE (09:00)
[2019-05-28 11:11] VITALS: BP 98/60; TEMP 98.3
--- NOTE | 2019-05-28 16:47 | CON ---
DATE OF CONSULTATION: 05/27/2019 REQUESTING PHYSICIAN: Lawson Goyal MD CONSULTING PHYSICIAN: Reginaldo Larios MD REASON FOR CONSULT: Manage medical problems. HISTORY OF PRESENT ILLNESS: Mr. Barton is a 73-year-old male with past medical history of CVA, hypertension, aphasia, and hematuria, who was admitted for suprapubic catheter placement. The patient has an indwelling Molina for his neurogenic bladder. He has been having lot of pain as well as recurrent hematuria as well. The patient was admitted for cystoscopy with suprapubic cystostomy, which was done. Postoperatively, the patient is right now is doing well. He does not have any fever. No shortness of breath. No chest pain. No nausea or vomiting. He has some hematuria now. PAST MEDICAL HISTORY: 1. Hypertension. 2. Hyperlipidemia. 3. Status post hemorrhagic stroke. 4. Aphasia. 5. Dysphagia status post PEG. 6. Neurogenic bladder. 7. Gastroesophageal reflux disease. 8. History of hematuria. 9. Recurrent UTI. PAST SURGICAL HISTORY: Status post PEG tube placement. CURRENT MEDICATIONS: The patient is on; 1. Omeprazole 40 mg daily. 2. Pancrelipase daily. 3. Scopolamine patch 1 mg q.3 days. 4. Trazodone 50 mg at bedtime. 5. Aspirin 81 mg daily. 6. Lipitor 20 mg daily. 7. Zofran p.r.n. 8. Tylenol p.r.n. 9. Clonidine p.r.n. 10. Dulcolax p.r.n. 11. Colace 100 mg daily. ALLERGIES: NKDA. FAMILY HISTORY: Nothing contributory. SOCIAL HISTORY: The patient lives in [facility]. No history of smoking. REVIEW OF SYSTEMS: Unable to obtain. The patient is aphasic. PHYSICAL EXAMINATION: GENERAL: The patient is alert, awake, and oriented x2. VITAL SIGNS: Temperature 98, pulse 85, respirations 20, and blood pressure 100/ 60. HEENT: Head is normocephalic and atraumatic. Pupils are equal and reactive. Nasopharynx is pale and dry. Hard and soft palate, no lesions, SKIN: Skin turgor decreased. NECK: Supple. No JVD. LUNGS: Bilateral air entry present. No rales. No rhonchi. HEART: S1 and S2. Regular. ABDOMEN: Soft. No distention. No tenderness. Normal bowel sounds present. RECTAL: Deferred. CENTRAL NERVOUS SYSTEM: No new deficits. LABORATORY DATA: CBC; WBC 8.9, hemoglobin 13, and platelets 240. Metabolic panel; sodium 137, potassium 4.7, chloride 103, CO2 of 23, and glucose 88. Prothrombin time 13 and INR 1.1. ASSESSMENT: 1. Hematuria. 2. Status post cerebrovascular accident. 3. Aphasia. 4. Neurogenic bladder. 5. Aphasia status post percutaneous endoscopic gastrostomy. 6. Status post suprapubic cystostomy. PLAN: 1. Continue usp medications. 2. Start tube feeding. Thank you very much for the consult. I will follow. Job ID: [id number] MTDD
--- NOTE | 2019-06-04 06:01 | PQF ---
[employer] LETTY Magana CEASAR MATA MD [id number] [place] [id number] CLINICAL DOCUMENTATION CLARIFICATION FORM: POST DISCHARGE Addendum to original discharge summary date: ____ Late entry note date: __ DATE: 06/04/2019 ATTN: CEASAR MATA MD Please exercise your independent, professional judgment in responding to the clarification form. Clinical indicators are provided on the bottom of this form for your review Please check appropriate box(s): [ ] Cystitis due to Urethral catheter [ ] Cystitis not due to Urethral catheter [ ] Other diagnosis [ ] Unable to determine CLINICAL INDICATORS - SIGNS / SYMPTOMS / LABS - Some cathter related cystitis- OP report, 05/27, CEASAR MATA MD - it is hoped that perhaps a suprapubic tube rather than urethral cathter-OP report, 05/27, CEASAR MATA MD - he had proteous in this urine generally growing-OP report, 05/27, CEASAR MATA MD - Hematuria related to UTI-OP report, 05/27, CEASAR MATA MD - Moderate BPH-OP report, 05/27, CEASAR MATA MD - recurrent UTIs- Progress note, 05/27- CEASAR MATA MD RISK FACTORS - Urinary retention-OP report, 05/27, CEASAR MATA MD - Cystoscopy and placement of suprapubic tube-OP report, 05/27, CEASAR MATA MD - Neurogenic bladder- Consult note, Harriet meadows MD TREATMENT: Rocephin IV-OP report, 05/27, CEASAR MATA MD (This form is maintained as a part of the permanent medical record) 2014 [employer]. All Rights Reserved Niall Ugalde [not provided] [not provided] MTDD
== END 2019-05-28 15:25 | DRG 690 ==
LOC: SDC 08:06 → SURG A 15:04
PROVIDERS: ADMIT Urology; ATTEND Urology
PROC: 0T9B80Z Drainage of Bladder with Drainage Device, Via Natural or Artificial Opening Endoscopic (ICD-10-PCS; principal; 2019-05-28)
DX: N30.91 Cystitis, unspecified with hematuria (principal); R47.01 Aphasia; I10 Essential (primary) hypertension; E78.5 Hyperlipidemia, unspecified; R13.10 Dysphagia, unspecified; E78.00 Pure hypercholesterolemia, unspecified; N31.9 Neuromuscular dysfunction of bladder, unspecified; N40.1 Benign prostatic hyperplasia with lower urinary tract symptoms; K21.9 Gastro-esophageal reflux disease without esophagitis; Z87.440 Personal history of urinary (tract) infections; Z86.73 Personal history of transient ischemic attack (TIA), and cerebral infarction without residual deficits
CPT/HCPCS: 36415; 80048; 85027; 85610; 85730; J0696; J1100; J2001; J2405; J3010; J3490

== ENCOUNTER 2019-06-24 20:20 | Inpatient (IN) | payer MEDICARE, OTHER ==
--- NOTE | 2019-06-24 21:03 | RAD ---
Exam: Chest one view HISTORY:Hematuria Comparison: 05/01/2019 FINDINGS: Cardiac silhouette:Upper normal heart size Aorta: Prominence of the aortic arch along with elongation aorta. Pulmonary vessels: Normal Costophrenic angles: Clear LUNGS: Chronic subsegmental atelectasis or scar in the right lung base with elevation the right hemid iaphragm. Chronic changes left lung base. Pneumothorax: None Osseous abnormalities: None IMPRESSION: No acute cardiopulmonary process.
[2019-06-24 21:07] LABS: #Basophils 0.1 thou/uL (0.0-0.2); #Eosinphils 0.5 thou/uL (0.0-0.7); #Lymphocytes 1.5 thou/uL (1.20-3.40); #Monocytes 0.7 thou/uL (0.11-0.59); %Basophils 0.8 % (0.0-1.0); %Eosinophils 5.1 % (0.0-10.0); %Lymphocytes 14.9 % (21.0-51.0); %Monocytes 7.4 % (0.0-10.0); %Neutrophils 71.7 % (42.0-75.0); Hemoglobin 11.9 g/dL (14.0-18.0); Mean Corpuscular HGB CONC 32.1 g/dL (32.0-36.0); Mean Corpuscular Hemoglobin 26.9 pg (27.0-31.0); Mean Corpuscular Volume 83.8 fL (78.0-98.0); Mean Platelet Volume 8.5 fL (7.4-10.4); Platelet Count 208 thou/uL (130-400); RBC Distribution Width 15.2 % (11.5-14.5); Red Blood Cell (RBC) Count 4.41 mill/uL (4.70-6.10); White Blood Cell (WBC) Count 9.7 thou/uL (4.8-10.8)
[2019-06-24 21:13] LABS: INR-International Normal Ratio 1.1; PTT 29.7 SEC (22.9-36.1); Prothrombin Time 13.9 SEC (12.0-14.7)
[2019-06-24 21:27] LABS: ALT (SGPT) 15 U/L (8-55); AST (SGOT) 17 U/L (5-34); Albumin 3.7 g/dL (3.4-4.8); Alkaline Phosphatase 123 U/L (40-150); Anion Gap 9 mmol/L (10-20); BUN (Urea Nitrogen) 33 mg/dL (8.4-25.7); Bilirubin, Total 0.3 mg/dL (0.2-1.2); Calc. Creatinine Clearance 0 mL/min (70-130); Calcium 9.3 mg/dL (7.8-10.44); Carbon Dioxide 29 mmol/L (23-31); Chloride 104 mmol/L (98-107); Estimated GFR-MDRD 74; Globulin 3.2 g/dL (2.4-3.5); Glucose 91 mg/dL (83-110); Potassium 4.6 mmol/L (3.5-5.1); Protein, Total 6.9 g/dL (5.8-8.1); Sodium 137 mmol/L (136-145)
--- NOTE | 2019-06-24 22:06 | CT ---
Exam: Abdomen CT without contrast Pelvic CT without contrast HISTORY: Hematuria COMPARISON: 09/19/2018 FINDINGS: Abdomen CT: Lung bases:Consolidation the right lower lobe may represent atelectasis, pneumonia or aspiration Heart size: Normal heart size. There are coronary artery calcifications Aorta: Atherosclerosis. No periaortic fat stranding. Solid organs: Limited evaluation due to the lack of IV contrast. Grossly no acute solid organ abnorma lity. Pneumobilia likely due to previous intervention at the sphincter of Merlin. Lymph nodes: No gastrohepatic, retrocrural or periportal lymphadenopathy Gallbladder: Markedly contracted. Small gallstone measuring 1.3 cm Mesentery: No mass, lymphadenopathy, free air or free fluid Kidneys: Bilaterally, no hydronephrosis, nephrolithiasis or perinephric fat stranding. Bilateral uret ers have a normal caliber. No hydroureter, periureteral fat stranding or ureterolithiasis. Redemonstration of a isodense mass in the right renal cortex measuring 1.4 x 1.8 cm. Redemonstration of a hypodense lesion in the right renal cortex measuring 1.6 x 2.2 cm. Large hypodense lesion in the left renal cortex measuring 5.4 x 4.0 cm. These a forementioned lesions were noted on a CT from 2017. None of these lesions have an attenuation coefficient compatible with a simple cyst. On the examination from September 2018, these renal masses were compatible with simple cyst. Alimentary canal: Limited evaluation by the lack of oral contrast. Percutaneous gastric feeding tube is noted. No evidence of bowel obstruction. Ileocecal junction is unremarkable. Caliber appendix. Scattered fecal material in a nondistended, nondilated colon. CT PELVIS: No mass, adenopathy, free air or free fluid. Unremarkable prostate gland Urinary bladder: Suprapubic catheter is noted. Persistent abnormal attenuation in the posterior right aspect of the urinary bladder, worrisome for mucosal based lesion until proven otherwise. This lesion measures at least 3.7 cm mediolateral by 1.6 cm anterior posterior. This lesion is identified on the previous examination. Osseous structures: No lytic or blastic lesions IMPRESSION: 1. Redemonstration of a mucosal-based pathology in the right aspect of the urinary bladder. Possibili ty of a neoplasm cannot be excluded. Stable suprapubic catheter. 2. Contracted gallbladder with evidence of gallstone. Table pneumobilia in the intrahepatic and extra hepatic biliary system. 3. Bilateral renal cortical cysts. Bilaterally no obstructive uropathy. 4. Consolidation in the right lower lobe. Correlate for aspiration, pneumonia or atelectasis Transcribed Date/Time: 06/24/2019 11:06 PM
[2019-06-25 00:29] LABS: Bilirubin Moderate (Negative); Blood, Urine Large (Negative); Glucose, Urine (Dipstick) Negative (Negative); Leukocyte Large (Negative); Nitrite Positive (Negative); Protein, Urine (Dipstick) > or equal to 300 mg/dL (Neg-Trace)
[2019-06-25 00:30] LABS: Clarity Turbid (Clear)
[2019-06-25] MEDS ORDERED: diphenhydrAMINE 50 MG/ML VIAL ONE (00:30)
[2019-06-25 00:31] LABS: Bacteria/HPF 4+ HPF (None Seen); RBC/HPF Greater than 50 HPF (0-3); WBC/HPF Greater Than 50 HPF (0-3)
[2019-06-25] MEDS: MEROPENEM 1 GM/50 ML 1 GM in Premix Bag 1 BAG IVPB SCH ×2 (06:39→16:35)
[2019-06-25] MEDS ORDERED: traMADol HCl 50 MG TAB ONE (12:09)
[2019-06-25 15:29] VITALS: BMI 23.1
[2019-06-25] MEDS ORDERED: MEROPENEM 1 GM/50 ML 1 GM in Premix Bag 1 BAG IVPB SCH ×2 (15:30→17:00)
[2019-06-25] MEDS ORDERED: Acetaminophen 500 MG TAB PER TUBE PRN (19:24)
[2019-06-25] MEDS ORDERED: Artificial Tear Sol 15 ML BOT EA EYE PRN (19:25)
[2019-06-25] MEDS ORDERED: Calcium Carbonate 600 MG TAB PER TUBE PRN (19:25)
[2019-06-25] MEDS ORDERED: Bisacodyl 10 MG SUPP PR PRN (19:25)
[2019-06-25] MEDS ORDERED: cloNIDine 0.1 MG TAB PER TUBE PRN (19:26)
[2019-06-25] MEDS ORDERED: Loperamide HCl 2 MG CAP PER TUBE PRN (19:29)
[2019-06-25] MEDS ORDERED: Diabetic Tussin 200 MG/10 ML UDCUP PER TUBE PRN (19:29)
[2019-06-25] MEDS ORDERED: Loratadine 10 MG TAB PER TUBE PRN (19:29)
[2019-06-25] MEDS ORDERED: Ondansetron ODT 4 MG TAB PER TUBE PRN (19:31)
[2019-06-25] MEDS ORDERED: Pancrelipase DR 12000 1 CAP PER TUBE PRN (19:32)
[2019-06-25] MEDS ORDERED: Scopolamine 1.5 mg/72 hour Patch TOP SCH (20:00)
[2019-06-25] MEDS: traZODone HCl 50 MG TAB PER TUBE SCH (20:25)
[2019-06-25] MEDS: Atorvastatin Calcium 20 MG TAB PER TUBE SCH (20:26)
[2019-06-25] MEDS ORDERED: Prevnar 13-Val Conj/PF 0.5 ML SYRINGE IM ONE (21:00)
--- NOTE | 2019-06-26 00:33 | HP ---
CHIEF COMPLAINT: Hematuria. HISTORY OF PRESENT ILLNESS: Mr. Barton is a 74-year-old male with past medical history of neurogenic bladder, recurrent UTI, CVA, has been having hematuria for the last couple of days. Initially, it was small, but now has got worse with also gross blood via penis also noted. He did not have any fever. No nausea or vomiting. He is tolerating feeding very well. He did not have any abdominal pain. The patient was sent to the hospital because of worsening hematuria. In the ER , the patient was evaluated and found to have gross hematuria as well as possible UTI. He was given a dose of meropenem, started on continuous bladder irrigation. Admitted for further evaluation and management. PAST MEDICAL HISTORY: 1. Neurogenic bladder. 2. Status post hemorrhagic stroke. 3. Hyperlipidemia. 4. Hypertension. 5. Aphasia. 6. Dysphagia status post PEG. 7. Gastroesophageal reflux disease. 8. History of gross hematuria. PAST SURGICAL HISTORY: Status post PEG tube placement. CURRENT MEDICATIONS: The patient is on 1. Tylenol p.r.n. 2. Aspirin 81 mg daily. 3. Atorvastatin 20 mg daily. 4. Dulcolax one tablet p.r.n. 5. Calcium carbonate 2 tablets q.6 p.r.n. 6. Benadryl p.r.n. 7. Colace one tablet daily. 8. Guaifenesin p.r.n. 9. DNS q.4 hours p.r.n. 10. Claritin 1 tablet daily. 11. Omeprazole 40 mg daily. 12. Zofran p.r.n. 13. Pancrelipase DR 12,000 units daily. 14. Scopolamine patch 1 mg q.3 days. 15. Trazodone 50 mg at bedtime. ALLERGIES: NKDA. FAMILY HISTORY: Nothing contributory. SOCIAL HISTORY: The patient lives in skilled nursing. No history of smoking. REVIEW OF SYSTEMS: Unable to obtain because of mental status. The patient is awake, but noncommunicative, nonverbal. PHYSICAL EXAMINATION: VITAL SIGNS: Temperature 98, pulse 96, respirations 20, blood pressure 100/70. HEENT: Head is normocephalic, atraumatic. Pupils are equal, round and reactive. Nasopharynx is pale and dry. Hard and soft palate, no lesions. SKIN: Turgor decreased. NECK: Supple. No JVD. LUNGS: Bilateral air entry present. No rales, no rhonchi. HEART: S1 and S2, regular. ABDOMEN: Soft. No distention. No tenderness. Normal bowel sounds present. RECTAL: Deferred. CENTRAL NERVOUS SYSTEM: No new deficits. LABORATORY DATA: CBC shows WBC 9.7, hemoglobin 12.9, hematocrit 37, platelets 208. Metabolic panel; sodium 137, potassium 4.6, chloride 104, CO2 29, BUN 30, creatinine 1.2,. Prothrombin time 13, INR 1.1. Urinalysis; urine wbc's greater than 50, rbc's greater than 50, nitrite positive, bacteria 4+. IMAGING STUDIES: Chest x-ray negative. CT abdomen and pelvis, urinary bladder showed mucosal based pathology and bilateral renal cysts. ASSESSMENT: 1. Gross hematuria. 2. Possible recurrent urinary tract infection. 3. Neurogenic bladder. 4. Status post hemorrhagic cerebrovascular accident. 5. Hypertension. 6. Aphasia. 7. Status post PEG. PLAN: 1. Vital signs q.4 hours. 2. Activities as tolerated. 3. Allergies, NKDA. 4. Hep-Lock. 5. Diet, tube feeding. 6. Meropenem 1 g IV piggyback q.6. 7. Continue skilled nursing medications. 8. Urology consult. 9. Continue bladder irrigation. Job ID: [id number] [facility]
[2019-06-26] MEDS ORDERED: cefTRIAXone\\ROCEPHIN 2 GM in Sodium Chloride 0.9% 100 ML IVPB SCH (04:00)
[2019-06-26] MEDS: Pantoprazole 40 MG GRANULES PACKET PER TUBE SCH (08:44)
[2019-06-26] MEDS: Docusate 100 MG CAP PER TUBE SCH (08:44)
[2019-06-26] MEDS: Aspirin 81 mg Enteric Coated Tablet PER TUBE SCH (08:44)
--- NOTE | 2019-06-26 14:44 | CON ---
DATE OF CONSULTATION: 06/25/2019 CONSULTING: [facility]. CONSULTED: Dr. Goldberg. REASON FOR CONSULTATION: Gross hematuria. HISTORY OF PRESENT ILLNESS: Mr. Barton is a 74-year-old white male, who is previously known to me for his urinary retention. He has a history of CVA and is now aphasic. He does understand everything, but has a Broca type aphasia with inability to properly communicate. Unfortunately, there is no one at the bedside at the time of my arrival and discussion with the patient. Most of the history is obtained from prior medical records and the patient nodding yes or no to selected questions. 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 He has had episodes of hematuria in the past. He was brought in from his alf facility to the ER secondary to gross hematuria. He did not have any fevers, pain, or spasms, and his catheter was draining, but it was noted to be extremely red. He underwent a CT in the ER, which demonstrated significant mucosal thickening, which could not exclude neoplasm versus just inflammation. Due to the heavy nature of the bleeding and opaqueness of the urine, I recommended that he come into the hospital for CBI until the hematuria stops on its own. He was admitted to Medicine secondary to his other medical issues and I have been consulted for assistance with his gross hematuria. Of note, the patient is not on any blood thinners and has no type of bleeding disorders. He also nods no to having any chest pain, shortness of breath, new onset numbness, weakness, lower extremity swelling, bladder spasms, bladder pain, incontinence, or problems related to his catheter other than hematuria. ALLERGIES: NONE. HOME MEDICATIONS: 1. Tylenol. 2. Aspirin. 3. Atorvastatin. 4. Dulcolax. 5. Calcium carbonate. 6. Benadryl. 7. Colace. 8. Guaifenesin. 9. Claritin. 10. Omeprazole. 11. Zofran. 12. Pancrelipase. PAST MEDICAL HISTORY: 1. Neurogenic bladder. 2. Hemorrhagic stroke. 3. Broca aphasia. 4. Hyperlipidemia. 5. Hypertension. 6. Dysphagia with PEG tube. 7. Gastroesophageal reflux disease. 8. Recurrent gross hematuria. PAST SURGICAL HISTORY: 1. SP tube placement. 2. PEG tube placement. FAMILY HISTORY: Noncontributory. SOCIAL HISTORY: The patient lives in a usp. He does not smoke. Does not drink alcohol or use any illicit drugs. REVIEW OF SYSTEMS: A 12-point review of systems was reviewed with yes or no questions with the patient and he did not respond yes to anything other than what was commented in the HPI, namely just the gross hematuria. PHYSICAL EXAMINATION: VITAL SIGNS: Temperature 98.6, pulse 97, respirations 18, blood pressure 108/73, and saturation 95% on room air. GENERAL: No apparent distress. Answering questions appropriately with yes or no, but cannot speak. Appears stated age. HEENT: Normocephalic and atraumatic. Pupils symmetric and round. Sclerae are nonicteric. Moist mucous membranes. Trachea midline. CARDIOVASCULAR: Regular rate and rhythm. Normal S1 and S2, symmetric pulses. CHEST: No increased work of breathing. Symmetric expansion. LUNGS: Clear anteriorly. ABDOMEN: Soft, nontender, and nondistended. Positive bowel sounds. PEG tube in place, which is capped. SP tube is also in place, currently clear yellow urine on slow drip CBI. : Molina catheter is in place, which is the outflow for the current CBI system and has clear urine. EXTREMITIES: No clubbing, cyanosis, or edema. MUSCULOSKELETAL: No joint deformities or joint erythema noted. No inflammation in the hands. NEUROLOGIC: The patient has the Broca aphasia as previously mentioned. He cannot speak. He does seem to have some hemiparesis. SKIN: Warm, dry, good turgor. No rashes or lesions. LYMPH NODES: No lymphadenopathy in the cervical or supraclavicular areas. Nothing in the inguinal region. PSYCHIATRIC: Appears alert. Orientation was not assessed. LABORATORY EVALUATION: The full set of labs are in the [facility] system, which I have reviewed. Of note, the patient's white count is 9.7 with a hemoglobin of 11.9. Creatinine is 0.99 with electrolytes being relatively normal. IMAGING: I have reviewed imaging of the CT abdomen and pelvis done without contrast, which demonstrates mucosal based pathology in the right aspect of the urinary bladder, which could not be differentiated between neoplasm versus inflammation. There is a contracted gallbladder with evidence of a gallstone. There are bilateral renal cortical cysts. No hydronephrosis. Consolidation of the right lower lobe, which could potentially be atelectasis versus pneumonia or aspiration. ASSESSMENT AND PLAN: A 74-year-old white male, currently with gross hematuria, which already appears to be resolving with continuous bladder irrigation. I would let the continuous bladder irrigation run overnight and then plan for stopping continuous bladder irrigation in the morning. If his urine remains clear, we can discontinue the Molina catheter and keep the SP tube to gravity drainage. From my standpoint, as long as his urine remain clear afterwards, he could be discharged from the hospital when his other medical issues are addressed and he has no other significant concerns from the medical team. I would recommend outpatient based cystoscopy to evaluate the mucosal based lesion. If it is simply inflammatory, we may still consider resection of the inflammatory areas to prevent future episodes of bleeding. If it is a tumor, then it will definitely need to be resected so long as the patient desires continued treatment, which I believe he does at this time. I will continue to follow along and make recommendations. Antibiotics currently are not necessary except for other reasons until final culture results are available, which thus far urine culture demonstrates mixed pathogens. If the patient is not having any bladder pain, spasms with resolution of his hematuria without white count or altered mental status, there is no strong indication to treat a colonized bladder, which the patient will have indefinitely given his indwelling catheters. Job ID: [id number]
[2019-06-26] MEDS: diphenhydrAMINE 25 MG CAP PER TUBE PRN (21:38)
[2019-06-26] MEDS: Atorvastatin Calcium 20 MG TAB PER TUBE SCH (21:39)
[2019-06-26] MEDS: traZODone HCl 50 MG TAB PER TUBE SCH (21:39)
[2019-06-27] MEDS: cefTRIAXone\\ROCEPHIN 2 GM in Sodium Chloride 0.9% 100 ML IVPB SCH (04:01)
[2019-06-27 05:55] LABS: Anion Gap 12 mmol/L (10-20); BUN (Urea Nitrogen) 36 mg/dL (8.4-25.7); Calc. Creatinine Clearance 68 mL/min (70-130); Calcium 8.6 mg/dL (7.8-10.44); Carbon Dioxide 24 mmol/L (23-31); Chloride 107 mmol/L (98-107); Estimated GFR-MDRD 64; Glucose 136 mg/dL (83-110); Potassium 4.1 mmol/L (3.5-5.1); Sodium 139 mmol/L (136-145)
[2019-06-27 05:56] LABS: #Eosinphils 0.6 thou/uL (0.0-0.7); #Lymphocytes 1.2 thou/uL (1.20-3.40); #Monocytes 0.7 thou/uL (0.11-0.59); #Neutrophils 7.3 thou/uL (1.40-6.50); %Basophils 0.4 % (0.0-1.0); %Eosinophils 5.9 % (0.0-10.0); %Lymphocytes 12.3 % (21.0-51.0); %Monocytes 6.7 % (0.0-10.0); %Neutrophils 74.7 % (42.0-75.0); Mean Corpuscular HGB CONC 33.8 g/dL (32.0-36.0); Mean Corpuscular Hemoglobin 27.8 pg (27.0-31.0); Mean Corpuscular Volume 82.2 fL (78.0-98.0); Mean Platelet Volume 8.4 fL (7.4-10.4); Platelet Count 176 thou/uL (130-400); RBC Distribution Width 15.2 % (11.5-14.5); Red Blood Cell (RBC) Count 3.94 mill/uL (4.70-6.10); White Blood Cell (WBC) Count 9.8 thou/uL (4.8-10.8)
[2019-06-27] MEDS: Aspirin 81 mg Enteric Coated Tablet PER TUBE SCH (09:46)
[2019-06-27] MEDS: Pantoprazole 40 MG GRANULES PACKET PER TUBE SCH (09:46)
[2019-06-27] MEDS: Docusate 100 MG CAP PER TUBE SCH (09:46)
--- NOTE | 2019-06-27 10:37 | PRG ---
DATE OF SERVICE: 06/26/2019 SUBJECTIVE: The patient is still nonverbal, but appears in no apparent distress. He nods no if he is in any discomfort or any pain. OBJECTIVE: VITAL SIGNS: Temperature 98.1, pulse 100, blood pressure 103/67, respirations 18, and saturation 95% on room air. GENERAL: No apparent distress. Answering questions appropriately by nodding, is nonverbal. CARDIOVASCULAR: Regular rate and rhythm. ABDOMEN: Soft, nontender, and nondistended. SP tube in place with CBI off. PEG tube is also in place. : Molina catheter in place with clear yellow urine. EXTREMITIES: No clubbing, cyanosis, or edema. ASSESSMENT AND PLAN: A 74-year-old white male with gross hematuria either due to mucosal based malignancy within the bladder versus more likely chronic inflammation from indwelling catheter. The patient will need an outpatient cystoscopy, but for the current time, the hematuria has stopped. Recommend discontinuation of the Molina catheter and placement of suprapubic catheter to gravity drainage. At this time, there is nothing further that I need to address on this patient. He does not appear to need any antibiotics. He is chronically colonized in his bladder. Would recommend outpatient cystoscopy once he is discharged. Any other medical issues I will leave to the medicine team. Job ID: [id number]
[2019-06-27] MEDS: diphenhydrAMINE 25 MG CAP PER TUBE PRN (20:21)
[2019-06-27] MEDS: Atorvastatin Calcium 20 MG TAB PER TUBE SCH (20:21)
[2019-06-27] MEDS: traZODone HCl 50 MG TAB PER TUBE SCH (20:21)
[2019-06-28] MEDS: cefTRIAXone\\ROCEPHIN 2 GM in Sodium Chloride 0.9% 100 ML IVPB SCH (04:50)
[2019-06-28] MEDS: Pantoprazole 40 MG GRANULES PACKET PER TUBE SCH (08:31)
[2019-06-28] MEDS: Aspirin 81 mg Enteric Coated Tablet PER TUBE SCH (08:31)
[2019-06-28] MEDS: Docusate 100 MG CAP PER TUBE SCH (08:31)
[2019-06-28 11:40] VITALS: BP 105/71; TEMP 97.5
--- NOTE | 2019-07-01 09:14 | PQF ---
[employer] LETTY Magana MIAH ULLOA MD [id number] MARILYNN DIXON [id number] CLINICAL DOCUMENTATION CLARIFICATION FORM: POST DISCHARGE Addendum to original discharge summary date: ____ Late entry note date: __ DATE: 07/01/19 ATTN: MIAH ULLOA MD Please exercise your independent, professional judgment in responding to the clarification form. Clinical indicators are provided on the bottom of this form for your review Please check appropriate box(s): [ ] Hematuria due to bladder cancer [ X ] Hematuria due to Chronic brock catheter [ ] Other diagnosis [ ] Unable to determine For continuity of documentation, please document condition throughout progress notes and discharge summary. Thank You. CLINICAL INDICATORS - SIGNS / SYMPTOMS / LABS - Gross hematuria either due to mucosal based malignancy within bladder versus more likely chronic inflammation from indwelling catheter- Progress note, 06/26 , Debra Gilman MD - Chronic colonized in his bladder-Progress note, 06/26, Debra Gilman MD - continues bladder irrigation-Consult, 06/25, MIAH ULLOA MD - possible recurrent UTI-H&P, 06/26, Harriet meadows MD RISK FACTORS - Hx of CVA- Consult, 06/25, MIAH ULLOA MD TREATMENT: -placement of suprapubic catheter to gravity drainage-Progress note, 06/26, Debra Gilman MD - Urology consult-H&P, 06/26, Harriet meadows MD (This form is maintained as a part of the permanent medical record) 2014 [employer]. All Rights Reserved Niall Ugalde [not provided] [not provided] RONDAD
--- NOTE | 2019-07-01 14:53 | DIS ---
DATE OF ADMISSION: 06/24/2019 DATE OF DISCHARGE: 06/28/2019 ADMITTING DIAGNOSES: 1. Gross hematuria. 2. Recurrent urinary tract infection. 3. anemia 4. Neurogenic bladder. 5. Status post hemorrhagic cerebrovascular accident. 6. Hypertension. FINAL DIAGNOSES: 1. Gross hematuria, resolved. 2. uti. 3. Anemia. 4. Neurogenic bladder. 5. Status post cerebrovascular accident. 6. Dysphagia, status post PEG. BRIEF SUMMARY OF HOSPITAL COURSE: Mr. Barton is a 74-year-old male admitted for evaluation of hematuria from [facility] The patient was started on continuous bladder irrigation. and hematuria gradually resolved. pt was seen by a urologist who felt hematuria could be due to bladder wallinflammation versus mucosal lesion in the bladder.in view ofimprovement pt is discharged back to correction . At the time of discharge pt was stable.vital signs stable. lungs clear, heart sounds normal, abdomen not tender. he wilcontinue all his [facility] meds.also ampicillin 500 mg qid for a week Job ID: [id number] [facility]
== END 2019-06-28 13:31 | DRG 699 ==
LOC: ERS 20:20 → ERHOLD 23:27 → T4-B 06-25 13:51
PROVIDERS: ADMIT Internal Medicine; ATTEND Internal Medicine
PROC: 0T9B70Z Drainage of Bladder with Drainage Device, Via Natural or Artificial Opening (ICD-10-PCS; principal; 2019-06-26)
DX: T83.83XA Hemorrhage due to genitourinary prosthetic devices, implants and grafts, initial encounter (principal); R47.01 Aphasia; I69.351 Hemiplegia and hemiparesis following cerebral infarction affecting right dominant side; C67.9 Malignant neoplasm of bladder, unspecified; R31.0 Gross hematuria; I70.90 Unspecified atherosclerosis; G47.00 Insomnia, unspecified; E78.5 Hyperlipidemia, unspecified; K21.9 Gastro-esophageal reflux disease without esophagitis; I10 Essential (primary) hypertension; N31.9 Neuromuscular dysfunction of bladder, unspecified; F17.210 Nicotine dependence, cigarettes, uncomplicated; R13.10 Dysphagia, unspecified; Y84.6 Urinary catheterization as the cause of abnormal reaction of the patient, or of later complication, without mention of misadventure at the time of the procedure; Z93.1 Gastrostomy status; I69.391 Dysphagia following cerebral infarction; I69.320 Aphasia following cerebral infarction; Z87.440 Personal history of urinary (tract) infections
CPT/HCPCS: 36415; 51702; 71045; 74176; 80048; 80053; 81003; 81015; 85025; 85610; 85730; 87040; 87077; 87086; 87186; 96374; J0696; J1200; J2185; J3490; Q0163

== ENCOUNTER 2019-07-23 20:37 | Observation (INO) | payer MEDICARE, OTHER ==
[2019-07-23 21:15] LABS: #Basophils 0.1 thou/uL (0.0-0.2); #Eosinphils 0.4 thou/uL (0.0-0.7); #Lymphocytes 1.5 thou/uL (1.20-3.40); #Monocytes 0.7 thou/uL (0.11-0.59); #Neutrophils 7.7 thou/uL (1.40-6.50); %Basophils 0.5 % (0.0-1.0); %Eosinophils 4.2 % (0.0-10.0); %Lymphocytes 14.4 % (21.0-51.0); %Monocytes 6.6 % (0.0-10.0); %Neutrophils 74.3 % (42.0-75.0); Hemoglobin 10.4 g/dL (14.0-18.0); Mean Corpuscular HGB CONC 32.2 g/dL (32.0-36.0); Mean Corpuscular Hemoglobin 26.5 pg (27.0-31.0); Mean Corpuscular Volume 82.3 fL (78.0-98.0); Mean Platelet Volume 8.3 fL (7.4-10.4); Platelet Count 212 thou/uL (130-400); RBC Distribution Width 15.5 % (11.5-14.5); Red Blood Cell (RBC) Count 3.92 mill/uL (4.70-6.10); White Blood Cell (WBC) Count 10.3 thou/uL (4.8-10.8)
[2019-07-23 21:35] LABS: ALT (SGPT) 16 U/L (8-55); AST (SGOT) 17 U/L (5-34); Albumin 3.5 g/dL (3.4-4.8); Alkaline Phosphatase 106 U/L (40-110); Anion Gap 12 mmol/L (10-20); BUN (Urea Nitrogen) 39 mg/dL (8.4-25.7); Bilirubin, Total 0.6 mg/dL (0.2-1.2); Calc. Creatinine Clearance 0 mL/min (70-130); Calcium 8.9 mg/dL (7.8-10.44); Carbon Dioxide 28 mmol/L (23-31); Chloride 106 mmol/L (98-107); Estimated GFR-MDRD 72; Globulin 3.3 g/dL (2.4-3.5); Glucose 89 mg/dL (83-110); Potassium 4.5 mmol/L (3.5-5.1); Protein, Total 6.8 g/dL (5.8-8.1); Sodium 141 mmol/L (136-145)
[2019-07-23 22:02] LABS: Lactic Acid 0.8 mmol/L (0.5-2.2)
[2019-07-23 22:37] LABS: Bilirubin Small (Negative); Blood, Urine Large (Negative); Glucose, Urine (Dipstick) Negative (Negative); Leukocyte Trace (Negative); Nitrite Negative (Negative); Protein, Urine (Dipstick) > or equal to 300 mg/dL (Neg-Trace); Urobilinogen 0.2 mg/dL (Less than 2)
[2019-07-23 22:38] LABS: Clarity Extra Turbid (Clear)
[2019-07-23 22:39] LABS: RBC/HPF Greater than 50 HPF (0-3)
[2019-07-23 22:40] LABS: Bacteria/HPF 1+ HPF (None Seen); Squamous Epithelial 0-3 HPF (0-3)
[2019-07-23 22:41] LABS: Mucous/LPF 1+ LPF (<2+)
[2019-07-24] MEDS ORDERED: cefTRIAXone\\ROCEPHIN 1 GM VIAL ONE (00:04)
[2019-07-24] MEDS ORDERED: Ondansetron ODT 4 MG TAB SL PRN (01:17)
[2019-07-24] MEDS ORDERED: Sodium Chloride 0.9% 1,000 ML IV SCH (01:17)
[2019-07-24] MEDS ORDERED: Ondansetron PF 4 MG/2 ML Vial IVP PRN (01:17)
--- NOTE | 2019-07-24 07:16 | RAD ---
2 VIEWS RIGHT FOREARM: Date: 07/23/19 HISTORY: Patient fell 1 week ago and now has pain. FINDINGS: No fracture or dislocation is seen involving the right forearm. There is generalized mottled appearan ce of the osseous structures of the forearm. These findings may be related to severe osteopenia. No o ther osseous abnormality. IMPRESSION: 1. No acute osseous abnormality. 2. Generalized mottled appearance of the osseous structures, which is thought to more likely be rela fioan to severe osteopenia/osteoporosis. POS: OFF
--- NOTE | 2019-07-24 07:18 | RAD ---
PORTABLE AP CHEST: Date: 07/23/19 HISTORY: Cough, hematuria, suprapubic catheter. COMPARISON: 06/24/19. FINDINGS: Cardiac silhouette and pulmonary vasculature are within normal limits. Thoracic aorta remains ectatic and calcified. Linear densities at the right lung base have improved, probably related to improvemen t in atelectasis. Linear densities left lung base have also improved, probably related to improvement in atelectasis. Remaining linear densities right lung base may be related to mild scarring. There is no consolidation or pleural fluid seen. Osteopenia is noted. Degenerative changes are present in the spine. IMPRESSION: Interval improvement in bibasilar linear densities which may be related to improvement in atelectasis or infiltrate. Mild persistent linear densities are seen at the right lung base, which may be relate d to residual atelectasis or scarring. POS: OFF
--- NOTE | 2019-07-24 07:19 | RAD ---
2 VIEWS RIGHT HUMERUS: Date: 07/23/19 HISTORY: Right shoulder pain after a fall. FINDINGS: There is a fracture involving the neck of the right humerus, which is mildly impacted, with slight se paration of fracture fragments laterally. There is diffuse osteopenia. No additional fracture is appr eciated and no obvious dislocation is seen. IMPRESSION: 1. Minimally comminuted and impacted fracture of the neck of the right humerus. 2. Diffuses osteopenia. POS: OFF
[2019-07-24 07:56] LABS: Hemoglobin 9.7 g/dL (14.0-18.0)
[2019-07-24] MEDS ORDERED: Ondansetron ODT 4 MG TAB PER TUBE PRN (09:51)
[2019-07-24 09:53] LABS: Hemoglobin 10.4 g/dL (14.0-18.0)
[2019-07-24] MEDS ORDERED: Loperamide HCl 2 MG CAP PER TUBE PRN (09:57)
[2019-07-24] MEDS ORDERED: guaiFENesin 100 MG/5 ML UDCUP PER TUBE PRN (09:58)
[2019-07-24] MEDS ORDERED: cloNIDine 0.1 MG TAB PER TUBE PRN (09:59)
[2019-07-24] MEDS ORDERED: Bisacodyl 10 MG SUPP PR PRN (10:00)
[2019-07-24] MEDS ORDERED: Artificial Tears 18 DROP/0.9 ML EA EYE PRN (10:01)
[2019-07-24] MEDS ORDERED: Acetaminophen 650 MG/20.3 ML UDCUP PER TUBE PRN (10:02)
--- NOTE | 2019-07-24 11:18 | CON ---
DATE OF CONSULTATION: 07/24/2019 This is a 74-year-old white male, who I am very familiar with, I am seeing in room 4430 today at [facility] in [place], [place]. He was admitted with gross hematuria last night. He has had episodes of gross hematuria for the last 16 to 18 months probably. He has had a couple a cystoscopies done. He has had a bladder biopsy. He has not had any evidence of bladder cancer. He was being managed at the nursing center with indwelling Molina catheter. Couple of months ago, they switched him to a suprapubic tube. He was admitted with gross hematuria few weeks ago and then, admitted yesterday evening. On blood work, he had a hemoglobin of 10.4 with a white count of 10.3 and a normal platelet count. His creatinine was 1.02. He had a urinalysis done that showed over 50 red cells, 11 to 20 white cells, and 1+ bacteria. Culture has been done. He received Rocephin in the emergency center. He is on aspirin that is really his only blood thinner and I have asked the longterm to hold that. Dr. Larios has admitted him. His abdomen is soft and nontender. He has a PEG tube in and the PEG tube site looks fine. His suprapubic site looks fine. His urine has some blood in it, but it is also clear with just a few clots in it. He had been ordered to start continuous bladder irrigation, I have asked the nurses not to do that, but just give him IV fluids and I think this is probably going to clear on its own. We will see what his culture shows. The only other thing that is different about him and is concerning is his mental status. He is a patient in a longterm that has had I believe some type of a brain or head injury, so he is mentally retarded or mentally delayed, but he has always been very friendly and outgoing person, awake and alert, and he is not today. I can get him to respond when I talk with him and sake him. He has also got a lot a raspy upper airway sounds. I am wondering if he has not got some other issue going on apart from this hematuria, strictly worried about possibly him having some type of pneumonia. His vital signs are fine. Currently, his pulse is around 90, temperature is afebrile, and his O2 saturations, it looks like it was 93 on room air and 96 currently. So, for now, we will just keep the suprapubic draining as it is not to be bladder irrigation. He received some antibiotics last evening and we will see what his culture shows. We will let Dr. Larios to decide if there is anything more going on with him related to his lungs. Job ID: [id number]
[2019-07-24] MEDS ORDERED: GASTROGRAFIN 30 ML BOT ONE (11:22)
[2019-07-24] MEDS: Piperacillin/Tazobactam 3.375 GM in Sodium Chloride 0.9% 100 ML IVPB SCH ×2 (11:32→17:10)
[2019-07-24] MEDS ORDERED: Scopolamine 1.5 mg/72 hour Patch TOP SCH (12:00)
--- NOTE | 2019-07-24 12:54 | RAD ---
SUPINE ABDOMEN: INDICATIONS: Assess PEG tube placement. TECHNIQUE: Three views obtained. FINDINGS: Contrast has been injected through an indwelling PEG tube. The stomach opacifies. There is no extrava sation. Findings would indicate adequate position of the PEG tube. There are gas filled mildly dilated loops of small bowel which appear nonspecific. Scattered stool an d gas in the colon. POS: TPC
[2019-07-24 13:17] LABS: Hemoglobin 10.5 g/dL (14.0-18.0)
[2019-07-24 14:44] VITALS: BMI 20.2
--- NOTE | 2019-07-24 15:54 | CT ---
CT CHEST WITH CONTRAST: HISTORY: Evaluate for aspiration. COMPARISON: None. CORRELATION: Abdomen CT without contrast 06/24/2019. FINDINGS: Mediastinum: No mass, lymphadenopathy or hematoma. Heart: Upper normal heart size. No significant pericardial effusion. There are coronary artery calcif ications. Aorta: Ascending thoracic aorta is slightly prominent measuring 4.2 x 3.7 cm. Atherosclerosis of the aortic knob and descending thoracic aorta. No evidence of periaortic fat stranding. Upper abdomen: Pneumobilia in the left intrahepatic biliary system and common bile duct is noted. Hyp odensities in the left or right renal cortex are similar to the previous examination. Refer to CT report from 06/24/2019 for further detail. Trachea and central bronchi are patent. Patchy ground glass opacities in lung parenchyma. There is consolidation with air bronchograms in the right lower lobe, similar to the previous examination. An area of scar or atelectasis is favored. Aspiration or pneumonia cannot be entirely excluded. There is elevation of the right hemidiaphragm fa voring a process resulting in decreased lung aeration. Subsegmental atelectasis or scarring in the middle lobe is noted. Patchy ground glass opacities in the nondependent portion of both lungs are mayra ntified. Nodules: A 0.8 x 0.5 cm solid nodule in the left lower lobe. Pleural effusion: None. Pneumothorax: None. Osseous structures: Chronic changes. IMPRESSION: 1. Persistent opacification in the right lower lobe favoring atelectasis or scar. Superimposed pneumo miguel or aspiration cannot be excluded. 2. Subsegmental atelectasis and scarring in the middle lobe. 3. Possible solid nodule in the left lower lobe. CODE LN Transcribed Date/Time: 07/24/2019 4:05 PM
[2019-07-24] MEDS: traZODone HCl 50 MG TAB PER TUBE SCH (20:15)
[2019-07-24] MEDS: Atorvastatin Calcium 20 MG TAB PER TUBE SCH (20:15)
[2019-07-24] MEDS ORDERED: Prevnar 13-Val Conj/PF 0.5 ML SYRINGE IM ONE (21:00)
[2019-07-24 21:56] LABS: Hemoglobin 9.6 g/dL (14.0-18.0)
[2019-07-25] MEDS: Piperacillin/Tazobactam 3.375 GM in Sodium Chloride 0.9% 100 ML IVPB SCH ×4 (00:28→17:28)
[2019-07-25 01:17] LABS: Hemoglobin 9.5 g/dL (14.0-18.0)
[2019-07-25 06:43] LABS: ALT (SGPT) 14 U/L (8-55); AST (SGOT) 20 U/L (5-34); Albumin 3.2 g/dL (3.4-4.8); Alkaline Phosphatase 108 U/L (40-110); Anion Gap 13 mmol/L (10-20); BUN (Urea Nitrogen) 34 mg/dL (8.4-25.7); Bilirubin, Total 0.5 mg/dL (0.2-1.2); Calc. Creatinine Clearance 63 mL/min (70-130); Calcium 8.5 mg/dL (7.8-10.44); Carbon Dioxide 22 mmol/L (23-31); Chloride 113 mmol/L (98-107); Estimated GFR-MDRD 68; Globulin 3.2 g/dL (2.4-3.5); Glucose 120 mg/dL (83-110); Potassium 4.3 mmol/L (3.5-5.1); Protein, Total 6.4 g/dL (5.8-8.1); Sodium 144 mmol/L (136-145)
[2019-07-25 08:15] LABS: #Eosinphils 0.2 thou/uL (0.0-0.7); #Lymphocytes 0.8 thou/uL (1.20-3.40); #Monocytes 0.6 thou/uL (0.11-0.59); #Neutrophils 7.8 thou/uL (1.40-6.50); %Basophils 0.2 % (0.0-1.0); %Eosinophils 2.6 % (0.0-10.0); %Lymphocytes 8.8 % (21.0-51.0); %Monocytes 6.1 % (0.0-10.0); %Neutrophils 82.3 % (42.0-75.0); Hemoglobin 9.5 g/dL (14.0-18.0); Mean Corpuscular HGB CONC 31.4 g/dL (32.0-36.0); Mean Corpuscular Hemoglobin 26.3 pg (27.0-31.0); Mean Corpuscular Volume 83.8 fL (78.0-98.0); Mean Platelet Volume 8.1 fL (7.4-10.4); Platelet Count 209 thou/uL (130-400); RBC Distribution Width 15.6 % (11.5-14.5); Red Blood Cell (RBC) Count 3.61 mill/uL (4.70-6.10); White Blood Cell (WBC) Count 9.5 thou/uL (4.8-10.8)
[2019-07-25] MEDS: Aspirin Chewable 81 MG TAB PER TUBE SCH (09:08)
[2019-07-25] MEDS: Pancrelipase DR 12000 1 CAP PER TUBE SCH (09:08)
[2019-07-25] MEDS: Pantoprazole 40 MG GRANULES PACKET PER TUBE SCH (09:08)
[2019-07-25] MEDS: Docusate Sodium 100 MG/10 ML UDCUP PER TUBE SCH (09:14)
[2019-07-25 11:08] LABS: Hemoglobin 9.6 g/dL (14.0-18.0)
--- NOTE | 2019-07-25 11:11 | HP ---
REASON FOR ADMISSION AND CHIEF COMPLAINT: Hematuria. HISTORY OF PRESENT ILLNESS: Mr. Barton is a 74-year-old male with past medical history of neurogenic bladder, suprapubic catheter, status post CVA and recurrent hematuria came because of the other hematuria 2 days ago and started to get worse. Nursing staff called Dr. Goyal and it was suggested the patient to be transferred to the hospital for evaluation. The patient was evaluated in the ER , found to have gross hematuria. According to the history, the patient also fell a week ago at the skilled nursing. He fell of the bed. X-rays were done in the ER, revealed a fracture of the right humerus. he also has cough which is productive with yellow sputum. The patient is being admitted because of hematuria and possible aspiration pneumonia. PAST MEDICAL HISTORY: 1. Status post cerebrovascular accident. 2. Dysphagia. 3. Neurogenic bladder status post suprapubic cystostomy. 4. Hyperlipidemia. 5. Hypertension. 6. Aphasia. PAST SURGICAL HISTORY: Status post PEG tube placement, status post suprapubic cystostomy. CURRENT MEDICATIONS: The patient is on 1. DNS q.i.d. p.r.n. 2. Loperamide p.r.n. 3. Claritin 1 tablet daily. 4. Omeprazole 40 mg daily. 5. Zofran p.r.n. 6. Pancrelipase 12,000 daily. 7. Scopolamine patch q.3 days. 8. Trazodone 50 mg at bedtime. 9. Tylenol p.r.n. 10. Artifical Tears p.r.n. 11. Aspirin 81 mg daily. 12. Atorvastatin 20 mg daily. 13. Dulcolax daily p.r.n. 14. Clonidine 0.1 q.6 p.r.n. 15. Colace 100 mg daily. 16. Guaifenesin p.r.n. ALLERGIES: NKDA. FAMILY HISTORY: Nothing contributory. SOCIAL HISTORY: The patient is a resident of [facility]. No history of smoking. No history of alcohol. REVIEW OF SYSTEMS: Unobtainable because the patient is aphasic. PHYSICAL EXAMINATION: GENERAL: The patient is alert, awake. VITAL SIGNS: Temperature 98, pulse 90, respirations 24/mt, and blood pressure 111/70. HEENT: Head is normocephalic, atraumatic. Pupils are equal and reactive. Nasopharynx is pale and dry. Hard and soft palate. No lesions. SKIN: Turgor decreased. NECK: Supple. No JVD. LUNGS: Breath sounds diminished bilaterally, percussion note dull bilaterally, crackles + at right base, No rhonchi. HEART: S1 and S2, regular. ABDOMEN: Soft. No distention. No tenderness. Normal bowel sounds present. RECTAL: Deferred. CENTRAL NERVOUS SYSTEM: No new deficits. EXTREMITIES: Right forearm, markedly tender. Range of movements markedly decreased. LABORATORY DATA: CBC shows WBC normal,, hemoglobin 10, hematocrit 32, platelets 212. Metabolic panel; sodium 140, potassium 4.2, chloride 106, CO2 28, BUN 39, creatinine 1, glucose 89. Urinalysis; wbc's 11-20, bacteria. X-ray of the humerus showed minimally comminuted and impacted fracture of the neck of the right humerus. X-ray of the forearm was negative. Chest x-ray shows possible atelectasis versus infiltrate in bases. ASSESSMENT: 1. Gross hematuria. 2. Possible aspiration pneumonia. 3. Fracture of the neck of the right humerus after the fall. 4. Status post hemorrhagic cerebrovascular accident. 5. Neurogenic bladder. 6. Anemia. PLAN: 1. Vital signs q.4 hours. 2. Activity as tolerated. 3. Allergies NKDA. 4. Hep-Lock. 5. We will continue tube feeding.. 6. Continue skilled nursing medications. 7. We will apply arm sling to the right. 8. Urology consult. 9. Orthopedic consult. 10. Milagros 3.375 gms IVPB Q 6hrs Job ID: [id number] [facility]
[2019-07-25 15:30] LABS: Hemoglobin 9.8 g/dL (14.0-18.0)
[2019-07-25 17:02] LABS: Hemoglobin 9.6 g/dL (14.0-18.0)
--- NOTE | 2019-07-25 17:06 | PRG ---
DATE OF SERVICE: 07/25/2019 SUBJECTIVE: This is a 74-year-old man, I am seeing today at [facility] in room 4430. He actually looks a lot better today. He is much more awake and more of himself. Tries to communicate. He looks at you when you speak to him. He has pain in his right upper extremity and was found to have a humeral fracture. I guess, he had fallen at the care home. I talked with the Orthopedic PA and they do not believe this will need to be casted or operated on, but just to be placed in a sling for comfort. His urine culture is growing a gram-negative ava and a staph species. His creatinine is normal at 1.06. His hemoglobin is 9.8 and white count was normal this morning. He is still slightly tachycardic, but he has not had any significant temperature elevation. His O2 saturations are now very good. He may have had aspiration pneumonia, he had a CT of the chest that suggests the possibility of that. He is on Zosyn right now. His urine is clear yellow today. So, the bleeding has stopped. I think his serial hemoglobins could be stopped because of that. IMPRESSION AND PLAN: Resolving hematuria. It is uncertain whether he actually has a urinary pathogen or just colonization from his suprapubic tube. Mentally, he is much better and all of this was related to fluids or to fluids and antibiotics. He has a new finding of a humeral fracture that is being attended to by the Orthopedic team. At this point, I think we could stop the serial hemoglobins. We are going to treat him with antibiotics for a urinary tract pathogen. I would stop those very quickly once the cultures are back. If he is going to be treated for pneumonia, then that would be a different story and I will leave that up to Dr. Larios. Job ID: [id number]
[2019-07-25] MEDS: Atorvastatin Calcium 20 MG TAB PER TUBE SCH (20:16)
[2019-07-25] MEDS: traZODone HCl 50 MG TAB PER TUBE SCH (20:16)
[2019-07-25 20:53] LABS: Hemoglobin 9.6 g/dL (14.0-18.0)
[2019-07-26] MEDS: Piperacillin/Tazobactam 3.375 GM in Sodium Chloride 0.9% 100 ML IVPB SCH ×3 (00:30→12:45)
[2019-07-26] MEDS: Docusate Sodium 100 MG/10 ML UDCUP PER TUBE SCH (08:23)
[2019-07-26] MEDS: Aspirin Chewable 81 MG TAB PER TUBE SCH (08:23)
[2019-07-26] MEDS: Pantoprazole 40 MG GRANULES PACKET PER TUBE SCH (08:23)
[2019-07-26] MEDS: Pancrelipase DR 12000 1 CAP PER TUBE SCH (08:23)
[2019-07-26 11:08] VITALS: BP 112/72; TEMP 98.4
--- NOTE | 2019-07-29 13:25 | DIS ---
DATE OF ADMISSION: 07/24/2019 DATE OF DISCHARGE: 07/26/2019 ADMITTING DIAGNOSES: 1. Gross hematuria. 2. Questionable aspiration pneumonia. 3. Fracture of the neck of the right humerus after the fall. 4. Status post hemorrhagic cerebrovascular accident. 5. Neurogenic bladder. 6. Anemia. FINAL DIAGNOSES: 1. Gross hematuria, resolved. 2. Pneumonia. 3. Fracture of the neck of the right humerus after the fall. 4. Status post cerebrovascular accident. 5. Neurogenic bladder. 6. Chronic anemia. BRIEF SUMMARY OF HOSPITAL COURSE: Mr. Barton is a 74-year-old male with past medical history of CVA and neurogenic bladder, who was brought in because of gross hematuria. The patient had episodes of gross hematuria in the past due to UTI and due to mucosal lesion in the bladder. Again, he started to have the same problem. He was seen by the urologist in consultation by Dr. Goyal. He felt the patient did not need any continued bladder irrigation and he to be monitored, but his hematuria got resolved the following day. The patient was also found to have possible pneumonia. The patient has cough, but no fever. His CT scan of the chest showed possible aspiration pneumonia. He was continued on Zosyn while in the hospital. He also has fracture of the neck of the humerus. He fell before comingto the hospital. A consultation was done with Orthopedic, who suggested an arm sling for comfort, so the patient is being discharged back to intermediate in view of hematuria resolved and cough is better and he did not have any fever while in the hospital. At the time of discharge, he was stable, vital signs stable, lungs clear, heart sounds regular, abdomen is soft and nontender. Bowel sounds present. DISCHARGE MEDICATIONS: 1. Scopolamine patch q.3 days 1 mg. 2. Dulcolax p.r.n. 10 mg suppository. 3. Trazodone 50 mg at bedtime. 4. Clonidine 0.1 q.6 p.r.n. 5. Guaifenesin 10 mg q.4 p.r.n. 6. Zofran p.r.n. 7. Claritin 10 mg daily. 8. Loperamide p.r.n. 9. Colace 100 mg daily. 10. Calcium carbonate 600 mg q.6 hours. 11. Tylenol p.r.n. 12. Lipitor 20 mg daily. 13. Omeprazole 40 mg daily. 14. Pancrelipase 56830 units daily. 15. Aspirin 81 mg daily. 16. DuoNeb q.i.d. p.r.n. 17. Ampicillin 500 mg qid for 1 week. 18. Doxycycline 100 mg b.i.d. for 1 week. The patient will be followed up in intermediate. Job ID: [id number] MTDD
== END 2019-07-26 12:56 | disposition home or self-care (01) ==
LOC: ERS 20:37 → T4-B 07-24 01:11
PROVIDERS: ADMIT Internal Medicine; ATTEND Internal Medicine
DX: R31.0 Gross hematuria (principal); J18.9 Pneumonia, unspecified organism; S42.291A Other displaced fracture of upper end of right humerus, initial encounter for closed fracture; I69.151 Hemiplegia and hemiparesis following nontraumatic intracerebral hemorrhage affecting right dominant side; I69.191 Dysphagia following nontraumatic intracerebral hemorrhage; R13.10 Dysphagia, unspecified; D64.9 Anemia, unspecified; N31.9 Neuromuscular dysfunction of bladder, unspecified; E78.5 Hyperlipidemia, unspecified; I10 Essential (primary) hypertension; M85.80 Other specified disorders of bone density and structure, unspecified site; F41.9 Anxiety disorder, unspecified; F17.210 Nicotine dependence, cigarettes, uncomplicated; J98.11 Atelectasis; Z79.82 Long term (current) use of aspirin; Z79.899 Other long term (current) drug therapy; Z93.1 Gastrostomy status; Z93.6 Other artificial openings of urinary tract status; W06.XXXA Fall from bed, initial encounter
CPT/HCPCS: 71045; 71260; 73060; 73090; 74018; 80053 ×2; 83605; 84145; 85014 ×4; 85018 ×4; 85025 ×2; 87077; 87086; 87186; 96365; 97139 ×2; 99284; G0378 ×5; 36415; 36416; 81003; 81015; J0696; J2543; J3490; Q9963